=== PATIENT | female | born 1930 | race Caucasian/White ===

== ENCOUNTER 2017-02-22 19:50 | Inpatient (IN) ==
[2017-02-22] MEDS ORDERED: KETOROLAC 30 MG/1 ML VIAL IV STA (21:49)
[2017-02-22] MEDS ORDERED: ONDANSETRON 4 MG/2 ML VIAL IV STA (21:49)
[2017-02-22] MEDS ORDERED: METHOCARBAMOL 500 MG TABLET PO STA (21:49)
[2017-02-22] MEDS ORDERED: ASPIRIN 325 MG TABLET PO STA (21:49)
--- NOTE | 2017-02-22 21:58 | EKG Report ---
Stationary ECG Study [facility] ER Test Date: 02/22/2017 8:04:51 PM Pat Name: GREGORY ROBERTS Department: Room: Gender: F [employer] Operator: Leonard : 1930 Requested by: Fabrizio Camacho Order Number: [id number] Reading MD: ALEXI SAAVEDRA Intervals [place] Rate: 57 P: 65 AR: 163 QRS: 99 QRSD: 98 T: 66 QT: 479 QTc: 473 Interpretive Statements SINUS BRADYCARDIA MODERATE RIGHT AXIS DEVIATION Electronically Signed On 02-23-17 07:34:54 CDT by ALEXI SAAVEDRA [email or web address]
[2017-02-22 22:05] LABS: Basophils # 0.1 10*3/uL (0.0-0.2); Basophils % 0.8 % (0.0-0.8); Eosinophils # 0.4 10*3/uL (0.0-0.87); Eosinophils % 5.2 % (0.00-10.9); Hematocrit 31.3 VOL% (35.7-47.0); Hemoglobin 10.6 GM/DL (12.0-16.0); Immature Granulocytes % 0.5 %; Immature Granulocytes Absolute 0.04 #; Lymphocytes # 2.3 10*3/uL (1.4-4.0); Lymphocytes % 30.1 % (21.3-54.2); Mean Corpuscular HGB Conc 33.9 GM/DL (32-36); Mean Corpuscular Hemoglobin 33 PG (27-34); Mean Corpuscular Volume 97.2 FL (87-102); Mean Platelet Volume 11.8 FL (9.6-12.0); Monocytes # 0.7 10*3/uL (0.11-0.8); Monocytes % 9.2 % (1.7-12.7); Neutrophils # 4.1 10*3/uL (1.4-7.4); Neutrophils % 54.2 % (38.7-73.9); Platelet Count 191 T/CUMM (130-400); Red Blood Count 3.22 MC/CUMM (3.8-5.5); Red Cell Distribution Width 14.5 % (9.3-17.3); White Blood Count 7.6 T/CUMM (4-12)
[2017-02-22 22:09] LABS: PT Patient Result 10.6 SECS
[2017-02-22] MEDS ORDERED: METHOCARBAMOL 500 MG TABLET ONE (22:20)
[2017-02-22] MEDS ORDERED: ONDANSETRON 4 MG/2 ML VIAL ONE (22:20)
[2017-02-22] MEDS ORDERED: KETOROLAC 30 MG/1 ML VIAL ONE (22:20)
[2017-02-22 22:21] LABS: Alanine Aminotransferase 22 U/L (13-56); Albumin 3.5 G/DL (3.4-5.0); Alkaline Phosphatase 74 U/L (45-117); Aspartate Amino Transferase 18 U/L (0-37); Bilirubin,Total < 0.39 MG/DL (0.2-1.0); Blood Urea Nitrogen 21 MG/DL (7-18); Calcium 8.7 MG/DL (8.5-10.1); Glucose 91 MG/DL (74-106); Magnesium 2.2 MG/DL (1.8-2.4); Osmolality,Calculated 281.4 MOS/KG (273-304); Potassium 4.6 MMOL/L (3.5-5.1); Sodium 140 MMOL/L (136-145); Total Protein 6.5 G/DL (6.4-8.3)
[2017-02-22] MEDS ORDERED: ASPIRIN 325 MG TABLET ONE (22:21)
[2017-02-23] MEDS ORDERED: ONDANSETRON 4 MG/2 ML VIAL IV STA (00:12)
[2017-02-23] MEDS ORDERED: MEPERIDINE 25 MG/1 ML VIAL IV STA (00:12)
--- NOTE | 2017-02-23 00:12 | Emergency Department Note ---
Farhat Barr Rolonda, am scribing for, and in the presence of, Fabrizio Blackman MD 22:09. Hiral Barr Charles R, MD, personally performed the services described in this documentation, ascribed by Susanne Dougherty in my presence, and it is both accurate and complete . Arrival - Arrival Chief Complaint: Chest Pain Stated Complaint: CHEST PAIN ED Nursing Triage Note: patient ambulator to triage with c/o left sided cp, denies n/v. sob on exertion Mode of Arrival: Wheelchair Limitations: No Limitations Source: Patient, Old Records Reviewed, RN Notes Reviewed - History of Present Illness HPI Narrative: Pt is an 86 y/o female who ambulated to the ED with c/o chest wall pain with an onset of . Pt has a PMHx of AFib, HTH, and Hypothyroidism. Pt stated that she has been "hurting all day" on the right side of her chest. She stated that as she was walking her normal walk for 25 minutes every morning this morning she felt a dull pain on the right side of her chest which continued even after she had finished the walk. She states that she recently had a stress test performed and passed with no complications; she is f/u by Dr. Guaman. She denies N/V, and sweating but confirms chest wall pain with movement. Pt declines being admitted to ED. No other complaint/pain in ED. Consistency: constant Severity: moderate Severity scale (1-10): 4 Allergies/Adverse Reactions: Allergies Allergy/AdvReac Type Severity Reaction Status Date / Time codeine Allergy Unknown/Unable Verified 10/19/16 16:38 to obtain Home Medications: Home Medications Medication Instructions Recorded Confirmed Type Amiodarone HCl 200 mg PO DAILY 10/17/16 02/22/17 History Calcium Carbonate/Vitamin D3 1 each PO DAILY 10/17/16 02/22/17 History [Caltrate 600 Plus D3 Tablet] Lisinopril 10 mg PO DAILY 10/17/16 02/22/17 History Apixaban [Eliquis] 2.5 mg PO BID 02/22/17 02/22/17 History Cyanocobalamin (Vitamin B-12) 1,000 mcg IJ Q30D 02/22/17 02/22/17 History [Cyanocobalamin Injection] Lactobacillus Combo No.6 1 each PO DAILY 02/22/17 02/22/17 History [Probiotic Complex] Levothyroxine Tab [Synthroid Tab] 112 mcg PO DAILY 02/22/17 02/22/17 History Review of System - Review of System 12 point system: reviewed and no additional remarkable complaints except as stated - Review of System Constitutional: Absent: chills, diaphoresis, fever Respiratory: Absent: cough, respiratory distress Cardiovascular: Present: chest pain (chest wall pain). Absent: dyspnea on exertion Gastrointestinal: Absent: abdominal pain, nausea, vomiting, diarrhea Musculoskeletal: Absent: arm pain, back pain, leg pain, neck pain Skin: Absent: rash Neurological: Absent: headache, weakness Medical,Surgical,& Family Hx - Medical History Cardio: History of: Cardiac Dysrhythmia (afib), Hypertension, Cardiovascular Problems (a-fib) Neurology: No history of: Seizures Endocrine: History of: Thyroid Disorder - Family History Family History: Reports;: Family Hypertension - Social History Smoking Status: Former smoker Frequency of Alcohol Use: None Type of Drug Use: None Exam Vital Signs: Vital Signs Temperature 97.3 F L 02/22/17 19:56 Pulse Rate 51 L 02/22/17 19:56 Respiratory Rate 20 02/22/17 19:56 Blood Pressure 180/63 02/22/17 19:56 O2 Sat by Pulse Oximetry 94 L 02/22/17 19:56 - General General appearance: alert, in no apparent distress - Head Head exam: Present: atraumatic, normocephalic - Eye Eye exam: Present: PERRL, EOMI - ENT ENT exam: Present: mucous membranes moist. Absent: mucous membranes dry - Neck Neck exam: Present: full ROM. Absent: tenderness - Chest Chest inspection: Present: symmetric chest wall rise. Absent: tenderness - Respiratory Respiratory exam: Present: normal lung sounds bilaterally. Absent: wheezes - Cardiovascular Cardiovascular exam: Present: murmur (3/6) - Abdominal Exam Abdominal exam: Present: soft, normal bowel sounds. Absent: tenderness - Extremities Exam Extremities exam: Present: full ROM. Absent: tenderness - Back Exam Back exam: Present: full ROM. Absent: tenderness - Neurological Exam Neurological exam: Present: alert, oriented X3, CN II-XII intact - Psychiatric Psychiatric exam: Present: normal affect, normal mood - Skin Skin exam: Present: warm, dry, intact, normal color. Absent: rash Course - Consultations Consultation #1: Dr. Townsend will admit patient Time: 00:11 Results - Labs CBC & BMP: 02/22/17 20:30 02/22/17 20:30 Lab Results: I have reviewed the patients labs Labs: Laboratory Tests 02/22/17 20:30 WBC 7.6 RBC 3.22 L Hgb 10.6 L Hct 31.3 L Plt Count 191 Laboratory Tests 02/22/17 20:30 INR 1.0 PT Patient/Control Mix 10.6 Laboratory Tests 02/22/17 20:30 Sodium 140 Potassium 4.6 Chloride 107 Carbon Dioxide 24 BUN 21 H GFR Calculation 48 BUN/Creatinine Ratio 21.00 H Laboratory Tests 02/22/17 20:30 B-Natriuretic Peptide 336 H Disposition Clinical Impression: Chest pain, Atrial fibrillation, Hypertension Case discussed with: patient, patient's family Disposition: Still a Patient Condition: Stable Time of Disposition: 00:12
[2017-02-23] MEDS ORDERED: MEPERIDINE 25 MG/1 ML VIAL ONE (00:17)
[2017-02-23] MEDS ORDERED: ONDANSETRON 4 MG/2 ML VIAL ONE (00:17)
[2017-02-23] MEDS ORDERED: HYDROmorphone 2 MG/1 ML VIAL IV PRN (01:05)
[2017-02-23] MEDS ORDERED: POTASSIUM CHLORIDE 20 MEQ TABLET PO PRN (01:05)
[2017-02-23] MEDS ORDERED: SODIUM CHLORIDE 0.9% 1,000 ML IV SCH (01:05)
[2017-02-23] MEDS ORDERED: MAGNESIUM SULF RIDER 4 GM in PREMIX 1 EACH IV PRN (01:05)
[2017-02-23] MEDS ORDERED: MAGNESIUM SULF RIDER 2 GM in PREMIX 1 EACH IV PRN (01:05)
--- NOTE | 2017-02-23 01:54 | EKG Report ---
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
[2017-02-23 05:56] LABS: Basophils # 0.1 10*3/uL (0.0-0.2); Basophils % 0.9 % (0.0-0.8); Eosinophils # 0.4 10*3/uL (0.0-0.87); Eosinophils % 6.3 % (0.00-10.9); Hematocrit 31.2 VOL% (35.7-47.0); Hemoglobin 10.6 GM/DL (12.0-16.0); Immature Granulocytes % 0.3 %; Immature Granulocytes Absolute 0.02 #; Lymphocytes # 2.6 10*3/uL (1.4-4.0); Lymphocytes % 40.1 % (21.3-54.2); Mean Corpuscular Hemoglobin 33 PG (27-34); Mean Corpuscular Volume 97.2 FL (87-102); Mean Platelet Volume 11.5 FL (9.6-12.0); Monocytes # 0.5 10*3/uL (0.11-0.8); Monocytes % 8.2 % (1.7-12.7); Neutrophils # 2.9 10*3/uL (1.4-7.4); Neutrophils % 44.2 % (38.7-73.9); Platelet Count 171 T/CUMM (130-400); Red Blood Count 3.21 MC/CUMM (3.8-5.5); Red Cell Distribution Width 14.4 % (9.3-17.3); White Blood Count 6.5 T/CUMM (4-12)
[2017-02-23 06:29] LABS: Albumin 3.3 G/DL (3.4-5.0); Bilirubin,Total 0.6 MG/DL (0.2-1.0); Calcium 8.3 MG/DL (8.5-10.1); Magnesium 2.2 MG/DL (1.8-2.4); Osmolality,Calculated 284.1 MOS/KG (273-304); Potassium 4.9 MMOL/L (3.5-5.1); Risk Ratio 3.42; Thyroid Stimulating Hormone 4.08 uIU/ml (0.358-3.74); Total Protein 6.1 G/DL (6.4-8.3); VLDL CHOLESTEROL 22.2 MG/DL
[2017-02-23] MEDS ORDERED: LEVOTHYROXINE 112 MCG TABLET PO SCH (07:00)
--- NOTE | 2017-02-23 07:31 | XRay Report ---
2 view chest. Indication: Chest pain. Comparison: July 16, 2016. The heart is upper limits of normal in size. There is a 7.8 cm hiatal hernia. There is calcific plaque present within the aortic knob. There is bilateral apical pleural irregularity which is stable. There is interstitial fibrosis which is stable. There has been a previous right mastectomy and axillary dissection. The osseous structures are severely demineralized. Previous vertebroplasty at the lumbar level. Surgical hardware in the right humerus. Impression: Chronic lung changes. Hiatal hernia. No acute abnormality. PROCEDURE INTERPRETED AT [facility] DEPARTMENT OF RADIOLOGY Final Report Signed by: Dr. Brianne Matos
--- NOTE | 2017-02-23 07:32 | XRay Report ---
Portable chest. Indication: Shortness of breath. Comparison: Yesterday's exam. The heart is normal in size. There is calcific plaque present within the aortic knob. Fibrotic changes are noted within the lung spencer. No consolidation, pneumothorax, or pleural effusion. Apical pleural irregularity, stable. Previous right mastectomy and axillary dissection. Surgical clips in the left neck. Surgical hardware in the right proximal humerus. Moderate hiatal hernia. Impression: Chronic lung changes. Hiatal hernia. No acute abnormality. PROCEDURE INTERPRETED AT [facility] DEPARTMENT OF RADIOLOGY Final Report Signed by: Dr. Brianne Matos
[2017-02-23] MEDS ORDERED: LACTOBACILLUS ACIDOPHILUS/BULGARICUS CAPLET PO SCH (09:00)
[2017-02-23] MEDS ORDERED: CALCIUM (CARBONATE)/VITAMIN D 600 MG-400 UNIT TABLET PO SCH (09:00)
[2017-02-23] MEDS ORDERED: APIXABAN 2.5 MG TABLET PO SCH (09:00)
[2017-02-23] MEDS ORDERED: ASPIRIN EC 81 MG TABLET PO SCH (09:00)
[2017-02-23] MEDS ORDERED: LISINOPRIL 10 MG TABLET PO SCH ×3 (09:00→09:32)
[2017-02-23] MEDS ORDERED: PANTOPRAZOLE 40 MG TABLET PO SCH (09:00)
[2017-02-23] MEDS ORDERED: AMIODARONE 200 MG TABLET PO SCH (09:00)
[2017-02-23] MEDS ORDERED: LEVOTHYROXINE 100 MCG TABLET PO SCH (09:31)
[2017-02-23] MEDS ORDERED: ALUMINUM/MAGNES/SIMETH MAX STR 30 ML UDCUP PO PRN (09:31)
[2017-02-23] MEDS ORDERED: NITROGLYCERIN SL 0.4 MG TABLET SL PRN (09:32)
--- NOTE | 2017-02-23 09:35 | Cardiology History & Physical ---
Assessment and Plan (1) Hiatal hernia Status: Acute Assessment and plan: 86-year-old female, presenting with chest pain, suggestive of GI origin from hiatal hernia. Also, had a marked hypertension. History of hypertension, hypothyroidism, recent stress test negative for ischemia, normal systolic function. Mild anemia, mild CKD, mild hyperthyroidism on current dose of Synthroid. ACS was ruled out. She is able to eat, without difficulties. The pain resolved , the blood pressure is better controlled. Mild, asymptomatic sinus bradycardia and EKG. -Chest pain. She will need GI evaluation. Currently, she is low risk and this may be pursued as an outpatient. -Continue PPI, start Maalox as needed. -Add amlodipine 5 mg daily for hypertension, this may also help with any muscular spastic component, if that contributed to the pain. I would avoid CCB' s with cardiac effects, due to baseline sinus bradycardia. -Hypertension. Continue lisinopril, she will need follow-up on this, pressure was markedly elevated, but she was in severe pain. -Hyperthyroidism. Decrease Synthroid 200 mcg daily. -Atrial fibrillation. Currently, in sinus rhythm. Continue amiodarone, anticoagulation with low-dose Eliquis. -Anemia. Will recommend GI evaluation as first step. Current Visit: Yes (2) Atrial fibrillation Status: Acute Current Visit: Yes (3) Acute urinary retention Status: Acute Current Visit: No (4) Hypertension Status: Chronic Current Visit: Yes (5) Hypothyroidism Status: Chronic Current Visit: No (6) Chest pain Status: Acute Current Visit: Yes History of Present Illness Chief complaint: CP History of present illness: Ms. Kwon is a 86 year old female, followed by Dr. Guaman. She has a history of paroxysmal atrial fibrillation, which is treated with amiodarone, as it was refractory to other measures in the past. Hypothyroidism, controlled with Synthroid. History of urinary retention. Yesterday, while walking, she developed severe retrosternal, sharp burning chest pain, which lasted for more than an hour. She checked her blood pressure was 230 at that time. Otherwise, her blood pressure usually well controlled. She came to the emergency room for evaluation. EKG showed no ischemic changes, blood pressure was mildly elevated and the chest pain resolved with pain medications nitroglycerin. Troponin was normal. Since then, she is feeling some indigestion, but no recurrence of pain and the blood pressure is only mildly elevated at this time. Chest x-ray confirmed hiatal hernia. She had a stress test a month ago, which showed normal systolic function, no evidence of myocardial ischemia. She is compliant with her medications and otherwise denies any black or bloody stools prior indigestion. She did not have GI evaluation before. There is mild sinus bradycardia, with occasional PACs on telemetry. Her prior EKGs from office shows sinus rhythm/sinus bradycardia, sometimes in bigeminy and PACs. No evidence of AV block. She also had documented atrial fibrillation, with controlled ventricular rate before. Mild CKD, GFR 43, both FT4 and TSH is mildly elevated. Home Medications Medication Instructions Recorded Confirmed Type Amiodarone HCl 200 mg PO DAILY 10/17/16 02/22/17 History Calcium Carbonate/Vitamin D3 1 each PO DAILY 10/17/16 02/22/17 History [Caltrate 600 Plus D3 Tablet] Lisinopril 10 mg PO DAILY 10/17/16 02/22/17 History Apixaban [Eliquis] 2.5 mg PO BID 02/22/17 02/22/17 History Cyanocobalamin (Vitamin B-12) 1,000 mcg IJ Q30D 02/22/17 02/22/17 History [Cyanocobalamin Injection] Lactobacillus Combo No.6 1 each PO DAILY 02/22/17 02/22/17 History [Probiotic Complex] Levothyroxine Tab [Synthroid Tab] 112 mcg PO DAILY 02/22/17 02/22/17 History Allergies Allergy/AdvReac Type Severity Reaction Status Date / Time codeine Allergy Unknown/Unable Verified 10/19/16 16:38 to obtain 12 point system: reviewed and no additional remarkable complaints except as stated Medical,Surgical,& Family Hx - Medical History Cardio: History of: Cardiac Dysrhythmia (afib), Hypertension, Cardiovascular Problems (a-fib) Neurology: No history of: Seizures Endocrine: History of: Thyroid Disorder (HYPO) - Family History Family History: Reports;: Family Hypertension - Social History Smoking Status: Former smoker Frequency of Alcohol Use: None Type of Drug Use: None Cardiology Physical Exam - Constitutional Vitals: Vital Signs Temp Pulse Resp BP Pulse Ox 97 F L 50 L 18 178/75 100 02/23/17 08:00 02/23/17 08:00 02/23/17 08:00 02/23/17 08:00 02/23/17 08:00 Intake and Output 02/22/17 02/23/17 02/23/17 23:59 07:59 15:59 Intake Total 50 / 50 Balance 50 / 50 Intake: Oral 50 / 50 Other: Voiding Method Toilet # Voids 1 # Bowel Movements 0 Weight 63.503 kg 63.134 kg Patient Weight 02/23/17 23:59 Weight 63.134 kg General appearance: normal weight, no acute distress - Head Head exam: Present: normal inspection, normocephalic - Eye Eye exam: Absent: conjunctival injection, periorbital swelling Pupils: Absent: dilated - ENT ENT exam: Present: normal external ear exam - Neck Neck exam: Present: normal inspection - Respiratory Respiratory exam: Present: clear to auscultation bilaterally. Absent: decreased breath sounds - Cardiovascular Cardiovascular exam: Present: bradycardia, systolic murmur. Absent: JVD - GI/Abdominal GI/Abdominal exam: Present: normal bowel sounds. Absent: distended, guarding - Extremities Exam Extremities exam: Present: normal inspection, normal capillary refill. Absent: edema - Back Exam Back exam: Present: normal inspection - Neurological Exam Neurological exam: Present: alert, oriented X3 - Psychiatric Psychiatric exam: Present: normal affect, normal mood - Skin Skin exam: Present: normal color, warm. Absent: cyanosis Result/EKG - Labs CBC & BMP: 02/23/17 04:53 02/23/17 04:53 Lab Results: I have reviewed the past 24 hour labs Labs: Laboratory Results - last 24 hr 02/22/17 02/22/17 02/22/17 20:30 20:30 20:30 WBC 7.6 RBC 3.22 L Hgb 10.6 L Hct 31.3 L MCV 97.2 MCH 33 MCHC 33.9 RDW 14.5 Plt Count 191 MPV 11.8 Neut % (Auto) 54.2 Lymph % (Auto) 30.1 [place] % (Auto) 9.2 Eos % (Auto) 5.2 Baso % (Auto) 0.8 Neut # (Auto) 4.1 Lymph # (Auto) 2.3 [place] # (Auto) 0.7 Eos # (Auto) 0.4 Baso # (Auto) 0.1 Immature Gran % 0.5 Nucleated RBC % 0.0 Immature Gran # 0.04 Nucleated RBCs # 0.00 INR 1.0 PT Patient/Control Mix 10.6 Sodium 140 Potassium 4.6 Chloride 107 Carbon Dioxide 24 Anion Gap 13.6 BUN 21 H Creatinine 1.00 GFR Calculation 48 BUN/Creatinine Ratio 21.00 H Glucose 91 Calculated Osmolality 281.4 Calcium 8.7 Magnesium 2.2 Total Bilirubin < 0.39 AST 18 ALT 22 Alkaline Phosphatase 74 Troponin I B-Natriuretic Peptide Total Protein 6.5 Albumin 3.5 Globulin 3.0 Albumin/Globulin Ratio 1.1 Triglycerides Cholesterol LDL Cholesterol VLDL Cholesterol HDL Cholesterol Heart Disease Risk Ratio Lipase 182.0 Free T4 TSH 3rd Generation 02/22/17 02/22/17 02/23/17 20:30 20:30 04:53 WBC RBC Hgb Hct MCV MCH MCHC RDW Plt Count MPV Neut % (Auto) Lymph % (Auto) [place] % (Auto) Eos % (Auto) Baso % (Auto) Neut # (Auto) Lymph # (Auto) [place] # (Auto) Eos # (Auto) Baso # (Auto) Immature Gran % Nucleated RBC % Immature Gran # Nucleated RBCs # INR PT Patient/Control Mix Sodium Potassium Chloride Carbon Dioxide Anion Gap BUN Creatinine GFR Calculation BUN/Creatinine Ratio Glucose Calculated Osmolality Calcium Magnesium Total Bilirubin AST ALT Alkaline Phosphatase Troponin I 0.019 < 0.015 B-Natriuretic Peptide 336 H Total Protein Albumin Globulin Albumin/Globulin Ratio Triglycerides Cholesterol LDL Cholesterol VLDL Cholesterol HDL Cholesterol Heart Disease Risk Ratio Lipase Free T4 TSH 3rd Generation 02/23/17 02/23/17 02/23/17 04:53 04:53 04:53 WBC 6.5 RBC 3.21 L Hgb 10.6 L Hct 31.2 L MCV 97.2 MCH 33 MCHC 34.0 RDW 14.4 Plt Count 171 MPV 11.5 Neut % (Auto) 44.2 Lymph % (Auto) 40.1 [place] % (Auto) 8.2 Eos % (Auto) 6.3 Baso % (Auto) 0.9 H Neut # (Auto) 2.9 Lymph # (Auto) 2.6 [place] # (Auto) 0.5 Eos # (Auto) 0.4 Baso # (Auto) 0.1 Immature Gran % 0.3 Nucleated RBC % 0.0 Immature Gran # 0.02 Nucleated RBCs # 0.00 INR PT Patient/Control Mix Sodium 142 Potassium 4.9 Chloride 108 H Carbon Dioxide 23 Anion Gap 15.9 H BUN 20 H Creatinine 1.10 H GFR Calculation 43 BUN/Creatinine Ratio 18.00 Glucose 81 Calculated Osmolality 284.1 Calcium 8.3 L Magnesium 2.2 Total Bilirubin 0.60 AST 14 ALT 20 Alkaline Phosphatase 69 Troponin I B-Natriuretic Peptide 542 H Total Protein 6.1 L Albumin 3.3 L Globulin 2.8 Albumin/Globulin Ratio 1.1 Triglycerides 111 Cholesterol 205 H LDL Cholesterol 118.0 VLDL Cholesterol 22.2 HDL Cholesterol 60 Heart Disease Risk Ratio 3.42 Lipase Free T4 TSH 3rd Generation 4.080 H 02/23/17 04:53 WBC RBC Hgb Hct MCV MCH MCHC RDW Plt Count MPV Neut % (Auto) Lymph % (Auto) [place] % (Auto) Eos % (Auto) Baso % (Auto) Neut # (Auto) Lymph # (Auto) [place] # (Auto) Eos # (Auto) Baso # (Auto) Immature Gran % Nucleated RBC % Immature Gran # Nucleated RBCs # INR PT Patient/Control Mix Sodium Potassium Chloride Carbon Dioxide Anion Gap BUN Creatinine GFR Calculation BUN/Creatinine Ratio Glucose Calculated Osmolality Calcium Magnesium Total Bilirubin AST ALT Alkaline Phosphatase Troponin I B-Natriuretic Peptide Total Protein Albumin Globulin Albumin/Globulin Ratio Triglycerides Cholesterol LDL Cholesterol VLDL Cholesterol HDL Cholesterol Heart Disease Risk Ratio Lipase Free T4 1.49 H TSH 3rd Generation - EKG EKG results: interpreted by me
--- NOTE | 2017-02-23 09:43 | Discharge Summary ---
Hospital Course - Hospital Course Hospital Course: 86-year-old female, followed by dr. Guaman. Presenting with chest pain, suggestive of GI origin from hiatal hernia. Also, had a marked hypertension. History of hypertension, hypothyroidism, recent stress test negative for ischemia, normal systolic function. Mild anemia, mild CKD, mild hyperthyroidism on current dose of Synthroid. ACS was ruled out. She is able to eat, without difficulties. The pain resolved , the blood pressure is now better controlled. Mild, asymptomatic sinus bradycardia and EKG. -Chest pain, HH. She will need GI evaluation. Currently, she is low risk and this may be pursued as an outpatient. -Continue PPI, started Maalox prn. -Added amlodipine 5 mg daily for hypertension, this may also help with any muscular spastic component, if that contributed to the pain. I would avoid CCB' s with cardiac effects, due to baseline sinus bradycardia. NTG prn. -Hypertension. Continue lisinopril, she will need follow-up on this, pressure was markedly elevated, when she was in severe pain. -Hyperthyroidism. Decreased Synthroid to 100 mcg daily. -Atrial fibrillation. Currently, in sinus bradycardia. Continue amiodarone, anticoagulation with low-dose Eliquis. -Cont ASA for CV risk factors. -Anemia. Will recommend GI evaluation as first step. -Elevated BNP, without signs of heart failure or volume overload. Prior echo showed grade 3 diastolic dysfunction, severe mitral regurgitation. I am going to add HTCZ 12.5 mg daily to her regimen. Continue rate and BP control. -FU with dr. Guaman in 1 week. Check BMP/Mg with added diuretic Diagnosis - Discharge Diagnosis (1) Hiatal hernia Status: Acute (2) Atrial fibrillation Status: Acute (3) Acute urinary retention Status: Acute (4) Hypertension Status: Chronic (5) Hypothyroidism Status: Chronic (6) Chest pain Status: Acute Discharge Plan - Discharge Data Disposition: Disch To Home/Self Care Condition at Discharge: Stable Discharge Diet: advance to your usual diet Activity: resume usual activities as tolerated Hygiene: no restrictions Weight Bearing at Discharge: full weight bearing Driving: no restrictions Contact your physician if you experience:: fever over 101, Difficulty voiding, Redness or swelling, Nausea/Vomiting, Shortness of breath, Bleeding, pain uncontrolled by pain medications - Discharge Medications New Aspirin EC Tab 81 mg PO DAILY #30 tablet hydroCHLOROthiazide [Hydrochlorothiazide] 12.5 mg PO DAILY #30 capsule Levothyroxine Tab [Synthroid Tab] 100 mcg PO 0700 #30 tablet Alum/Mag/Simeth Max Str Liquid [Mylanta Max Strength Liquid] 30 ml PO Q4H PRN #30 PRN Reason: Dyspepsia amLODIPine [Norvasc] 5 mg PO DAILY #30 tablet Continue Calcium Carbonate/Vitamin D3 [Caltrate 600 Plus D3 Tablet] 1 each PO DAILY Amiodarone HCl 200 mg PO DAILY Apixaban [Eliquis] 2.5 mg PO BID Lactobacillus Combo No.6 [Probiotic Complex] 1 each PO DAILY Lisinopril 10 mg PO DAILY Cyanocobalamin (Vitamin B-12) [Cyanocobalamin Injection] 1,000 mcg IJ Q30D Discontinued Levothyroxine Tab [Synthroid Tab] 112 mcg PO DAILY - Follow Up or Referral Follow Up: Zhang Guaman MD [Physician] - - Forms/Instructions Exam - Constitutional Vitals: Period Temp Pulse Resp BP Sys/Goff Pulse Ox Last 24 Hr 97 F-97.8 F 46-52 16-20 144-180/54-75 94-100 General appearance: normal weight, no acute distress - Head Head exam: Present: normal inspection, normocephalic - Eye Eye exam: Absent: conjunctival injection, scleral icterus Pupils: Absent: dilated - ENT ENT exam: Present: normal external ear exam - Neck Neck exam: Present: normal inspection - Respiratory Respiratory exam: Present: clear to auscultation bilaterally. Absent: accessory muscle use, chest wall tenderness - Cardiovascular Cardiovascular exam: Present: bradycardia, systolic murmur - GI/Abdominal GI/Abdominal exam: Present: normal bowel sounds. Absent: distended, guarding - Extremities Exam Extremities exam: Present: normal inspection, normal capillary refill. Absent: edema - Back Exam Back exam: Present: normal inspection - Neurological Exam Neurological exam: Present: alert, oriented X3 - Psychiatric Psychiatric exam: Present: normal affect, normal mood - Skin Skin exam: Present: normal color, warm. Absent: cyanosis Discharge Results Labs on day of discharge: Labs from last 24 hours 02/23/17 02/23/17 02/23/17 04:53 04:53 04:53 WBC RBC Hgb Hct MCV MCH MCHC RDW Plt Count MPV Neut % (Auto) Lymph % (Auto) [place] % (Auto) Eos % (Auto) Baso % (Auto) Neut # (Auto) Lymph # (Auto) [place] # (Auto) Eos # (Auto) Baso # (Auto) Immature Gran % Nucleated RBC % Immature Gran # Nucleated RBCs # INR PT Patient/Control Mix Sodium 142 Potassium 4.9 Chloride 108 H Carbon Dioxide 23 Anion Gap 15.9 H BUN 20 H Creatinine 1.10 H GFR Calculation 43 BUN/Creatinine Ratio 18.00 Glucose 81 Calculated Osmolality 284.1 Calcium 8.3 L Magnesium 2.2 Total Bilirubin 0.60 AST 14 ALT 20 Alkaline Phosphatase 69 Troponin I B-Natriuretic Peptide 542 H Total Protein 6.1 L Albumin 3.3 L Globulin 2.8 Albumin/Globulin Ratio 1.1 Triglycerides 111 Cholesterol 205 H LDL Cholesterol 118.0 VLDL Cholesterol 22.2 HDL Cholesterol 60 Heart Disease Risk Ratio 3.42 Lipase Free T4 1.49 H TSH 3rd Generation 4.080 H 02/23/17 02/23/17 02/22/17 04:53 04:53 20:30 WBC 6.5 RBC 3.21 L Hgb 10.6 L Hct 31.2 L MCV 97.2 MCH 33 MCHC 34.0 RDW 14.4 Plt Count 171 MPV 11.5 Neut % (Auto) 44.2 Lymph % (Auto) 40.1 Tillman % (Auto) 8.2 Eos % (Auto) 6.3 Baso % (Auto) 0.9 H Neut # (Auto) 2.9 Lymph # (Auto) 2.6 Tillman # (Auto) 0.5 Eos # (Auto) 0.4 Baso # (Auto) 0.1 Immature Gran % 0.3 Nucleated RBC % 0.0 Immature Gran # 0.02 Nucleated RBCs # 0.00 INR PT Patient/Control Mix Sodium Potassium Chloride Carbon Dioxide Anion Gap BUN Creatinine GFR Calculation BUN/Creatinine Ratio Glucose Calculated Osmolality Calcium Magnesium Total Bilirubin AST ALT Alkaline Phosphatase Troponin I < 0.015 B-Natriuretic Peptide 336 H Total Protein Albumin Globulin Albumin/Globulin Ratio Triglycerides Cholesterol LDL Cholesterol VLDL Cholesterol HDL Cholesterol Heart Disease Risk Ratio Lipase Free T4 TSH 3rd Generation 02/22/17 02/22/17 02/22/17 20:30 20:30 20:30 WBC 7.6 RBC 3.22 L Hgb 10.6 L Hct 31.3 L MCV 97.2 MCH 33 MCHC 33.9 RDW 14.5 Plt Count 191 MPV 11.8 Neut % (Auto) 54.2 Lymph % (Auto) 30.1 Tillman % (Auto) 9.2 Eos % (Auto) 5.2 Baso % (Auto) 0.8 Neut # (Auto) 4.1 Lymph # (Auto) 2.3 Tillman # (Auto) 0.7 Eos # (Auto) 0.4 Baso # (Auto) 0.1 Immature Gran % 0.5 Nucleated RBC % 0.0 Immature Gran # 0.04 Nucleated RBCs # 0.00 INR PT Patient/Control Mix Sodium 140 Potassium 4.6 Chloride 107 Carbon Dioxide 24 Anion Gap 13.6 BUN 21 H Creatinine 1.00 GFR Calculation 48 BUN/Creatinine Ratio 21.00 H Glucose 91 Calculated Osmolality 281.4 Calcium 8.7 Magnesium 2.2 Total Bilirubin < 0.39 AST 18 ALT 22 Alkaline Phosphatase 74 Troponin I 0.019 B-Natriuretic Peptide Total Protein 6.5 Albumin 3.5 Globulin 3.0 Albumin/Globulin Ratio 1.1 Triglycerides Cholesterol LDL Cholesterol VLDL Cholesterol HDL Cholesterol Heart Disease Risk Ratio Lipase 182.0 Free T4 TSH 3rd Generation 02/22/17 20:30 WBC RBC Hgb Hct MCV MCH MCHC RDW Plt Count MPV Neut % (Auto) Lymph % (Auto) [place] % (Auto) Eos % (Auto) Baso % (Auto) Neut # (Auto) Lymph # (Auto) [place] # (Auto) Eos # (Auto) Baso # (Auto) Immature Gran % Nucleated RBC % Immature Gran # Nucleated RBCs # INR 1.0 PT Patient/Control Mix 10.6 Sodium Potassium Chloride Carbon Dioxide Anion Gap BUN Creatinine GFR Calculation BUN/Creatinine Ratio Glucose Calculated Osmolality Calcium Magnesium Total Bilirubin AST ALT Alkaline Phosphatase Troponin I B-Natriuretic Peptide Total Protein Albumin Globulin Albumin/Globulin Ratio Triglycerides Cholesterol LDL Cholesterol VLDL Cholesterol HDL Cholesterol Heart Disease Risk Ratio Lipase Free T4 TSH 3rd Generation - Imaging and Cardiology Cardiology Procedure: image reviewed by me, report reviewed by me DS: Provider Date of admission: 02/23/17 00:12 Primary care physician: Linda Caal Attending physician on admission: Vlad Townsend MD Discharging clinician: Vlad Townsend MD Expected date of discharge: 02/23/17
[2017-02-23] MEDS ORDERED: hydroCHLOROthiazide 12.5 MG CAPSULE PO SCH (10:00)
[2017-02-23] MEDS ORDERED: amLODIPine 5 MG TABLET PO SCH (10:00)
--- NOTE | 2017-02-23 10:43 | EKG Report ---
Stationary ECG Study [facility] Test Date: 02/23/2017 10:16:06 AM Pat Name: GREGORY ROBERTS Department: Room: 287 Gender: F Palliative Medicine Physician: FLOYD : [id number] Requested by: Fabrizio Camacho Order Number: [id number] Reading MD: ALEXI SAAVEDRA Intervals [place] Rate: 48 P: 83 ID: [id number] QRS: 95 QRSD: 98 T: 87 QT: 504 QTc: 470 Interpretive Statements SINUS BRADYCARDIA BORDERLINE RIGHT AXIS DEVIATION Electronically Signed On 02-23-17 13:46:49 CDT by ALEXI SAAVEDRA [email or web address]
[2017-02-23 11:32] VITALS: BP 190/81
== END 2017-02-23 13:41 | disposition home or self-care (01) | DRG 392 ==
LOC: N.ED 19:50 → N.EDINP 02-23 00:12 → N.TELEN 02-23 01:10
PROVIDERS: ADMIT Internal Medicine Clinical Cardiac Electrophysiology; ATTEND Internal Medicine Clinical Cardiac Electrophysiology

== ENCOUNTER 2017-03-12 17:03 | Inpatient (IN) ==
[2017-03-12] MEDS ORDERED: ONDANSETRON 4 MG/2 ML VIAL IV STA (17:27)
[2017-03-12] MEDS ORDERED: SODIUM CHLORIDE 0.9% 1,000 ML IV STA (17:27)
[2017-03-12 17:48] LABS: Basophils % 0.1 % (0.0-0.8); Eosinophils % 0.1 % (0.00-10.9); Hematocrit 28.3 VOL% (35.7-47.0); Hemoglobin 10.4 GM/DL (12.0-16.0); Immature Granulocytes % 2.4 %; Immature Granulocytes Absolute 0.34 #; Lymphocytes # 1.4 10*3/uL (1.4-4.0); Lymphocytes % 9.7 % (21.3-54.2); Mean Corpuscular HGB Conc 36.7 GM/DL (32-36); Mean Corpuscular Hemoglobin 33 PG (27-34); Mean Corpuscular Volume 90.1 FL (87-102); Mean Platelet Volume 10.3 FL (9.6-12.0); Monocytes % 7.2 % (1.7-12.7); Neutrophils # 11.6 10*3/uL (1.4-7.4); Neutrophils % 80.5 % (38.7-73.9); Platelet Count 244 T/CUMM (130-400); Red Blood Count 3.14 MC/CUMM (3.8-5.5); Red Cell Distribution Width 13.2 % (9.3-17.3); White Blood Count 14.4 T/CUMM (4-12)
[2017-03-12] MEDS ORDERED: ONDANSETRON 4 MG/2 ML VIAL ONE (17:48)
--- NOTE | 2017-03-12 17:55 | XRay Report ---
Portable chest Date: 03/12/2017 Clinical history: Tachycardia Comparison: 03/05/2017 Technique: Portable AP sitting chest Findings: The heart is enlarged with calcification in the aortic knob. Density posterior to the heart consistent with probable hiatal hernia. Chronic scarring in the lungs with minimal atelectasis. Post operative findings in the proximal right humerus with old healed fracture, osteopenia, and degenerative changes. Postoperative findings in the right axilla. Impression: Stable cardiomegaly with hiatal hernia. Chronic scarring with minimal atelectasis. Osteopenia with old healed proximal right humeral fracture. PROCEDURE INTERPRETED AT [facility] DEPARTMENT OF RADIOLOGY Final Report Signed by: Dr. Dianne Pascual
--- NOTE | 2017-03-12 17:57 | XRay Report ---
Exam: XR abdomen 1V Date: 03/12/2017 5:39 PM Comparison: 09/28/2010 Indication: Nausea and vomiting Technique:[Supine abdomen] Findings: Mild gaseous distention of the right colon with increased fecal material. Minimal dextroscoliosis of the lumbar spine with interval L1 and L2 kyphoplasty. Osteopenia with degenerative changes. Impression: Mild gaseous distention of the right colon which is probably related to the increased fecal material consistent with constipation. It would be difficult to exclude ileus, etc. Minimal dextroscoliosis with osteopenia and prior L1 and L2 kyphoplasty. PROCEDURE INTERPRETED AT [facility] DEPARTMENT OF RADIOLOGY Final Report Signed by: Dr. Dianne Pascual
[2017-03-12 18:20] LABS: Alanine Aminotransferase 53 U/L (13-56); Albumin 3.1 G/DL (3.4-5.0); Alkaline Phosphatase 92 U/L (45-117); Aspartate Amino Transferase 42 U/L (0-37); Bilirubin,Total < 0.39 MG/DL (0.2-1.0); Blood Urea Nitrogen 26 MG/DL (7-18); Calcium 8.1 MG/DL (8.5-10.1); Glucose 164 MG/DL (74-106); Osmolality,Calculated 237.2 MOS/KG (273-304); Potassium 5.6 MMOL/L (3.5-5.1); Troponin I Only 0.018 NG/ML (0.00-0.045)
[2017-03-12 18:26] LABS: Sodium 113 MMOL/L (136-145)
--- NOTE | 2017-03-12 18:46 | Emergency Department Note ---
Petar Barr Brittany, am scribing for, and in the presence of, Jc Beard MD 17 :32. Kisha Barr Hans, MD, personally performed the services described in this documentation, ascribed by Sera Davey in my presence, and it is both accurate and complete [id number] . Arrival - Arrival Chief Complaint: Nausea/Vomiting/Diarrhea Stated Complaint: C/O ABDOMINAL PAIN WITH NAUSEA. PT STATES SHE ED Nursing Triage Note: C/O NAUSEA/ABD PAIN WITH ONSET TWO DAYS AGO, PT STATES SHE HAS NOT EATEN IN TWO DAYS. PT IS CURRENTLY BEING TREATED FOR UTI. EMS STATES HER HEART RATE WAS 32 UPON EMS ARRIVAL. CAME UP TO 65 WITH 0.5 ATROPINE PER EMS. Mode of Arrival: Stretcher Limitations: No Limitations Source: Patient, RN Notes Reviewed Time Seen by Provider: 03/12/17 17:18 - History of Present Illness HPI Narrative: Patient is a 86 y/o white female presenting to the ED by EMS with c/o severe nausea which onset 2 days ago, worsening today. Patient denies any abdominal pain or vomiting. Patient reports that she currently is being treated for a UTI. Patient states that she currently takes a Thyroid medication before meals and states that this may have made her sick. From triage note patient was found to be bradycardic with a rate of 32 bpm per EMS and was given 0.5 mg of Atropine per EMS, bringing rate up to 65 bpm. In room patient is bradycardic with a rate of 45 bpm on the monitor. Patient has no other complaints/pain. Date of Last Menstrual Period: ST Allergies/Adverse Reactions: Allergies Allergy/AdvReac Type Severity Reaction Status Date / Time codeine Allergy Unknown/Unable Verified 03/04/17 23:59 to obtain Home Medications: Home Medications Medication Instructions Recorded Confirmed Type Amiodarone HCl 200 mg PO DAILY 10/17/16 03/11/17 History Calcium Carbonate/Vitamin D3 1 each PO DAILY 10/17/16 03/11/17 History [Caltrate 600 Plus D3 Tablet] Lisinopril 10 mg PO DAILY 10/17/16 03/11/17 History Apixaban [Eliquis] 2.5 mg PO BID 02/22/17 03/11/17 History Cyanocobalamin (Vitamin B-12) 1,000 mcg IJ Q30D 02/22/17 03/11/17 History [Cyanocobalamin Injection] Lactobacillus Combo No.6 1 each PO DAILY 02/22/17 03/11/17 History [Probiotic Complex] Alum/Mag/Simeth Max Str Liquid 30 ml PO Q4H PRN #30 02/23/17 03/11/17 Rx [Mylanta Max Strength Liquid] Aspirin EC Tab 81 mg PO DAILY #30 tablet 02/23/17 03/11/17 Rx Levothyroxine Tab [Synthroid Tab] 100 mcg PO 0700 #30 tablet 02/23/17 03/11/17 Rx amLODIPine [Norvasc] 5 mg PO DAILY #30 tablet 02/23/17 03/11/17 Rx hydroCHLOROthiazide 12.5 mg PO DAILY #30 capsule 02/23/17 03/11/17 Rx [Hydrochlorothiazide] Ketorolac Tab [Toradol Tab] 10 mg PO Q6H PRN #14 tablet 03/05/17 03/11/17 Rx Ciprofloxacin Tab [Cipro Tab] 500 mg PO BID #14 tablet 03/11/17 Rx Phenazopyridine HCl [Pyridium] 200 mg PO TID #9 tablet 03/11/17 Rx Review of System - Review of System 12 point system: reviewed and no additional remarkable complaints except as stated - Review of System Constitutional: Absent: chills, fever Eyes: Absent: vision change Head/Ears/Nose/Throat: Absent: nasal drainage, sore throat Respiratory: Absent: respiratory distress Cardiovascular: Absent: chest pain Gastrointestinal: Present: nausea. Absent: abdominal pain, vomiting, diarrhea, constipation Genitourinary female: Absent: dysuria, frequency, urgency Musculoskeletal: Absent: arm pain, back pain, leg pain, neck pain Skin: Absent: rash Neurological: Absent: headache Psychiatric: Absent: anxiety, depression Medical,Surgical,& Family Hx - Medical History Cardio: History of: Cardiac Dysrhythmia (afib), Hypertension, Cardiovascular Problems (a-fib) Neurology: No history of: Seizures HEENT: History of: Eye Problem (Macular Degeneration) Endocrine: History of: Thyroid Disorder (HYPO) - Family History Family History: Reports;: Family Hypertension - Social History Smoking Status: Former smoker Frequency of Alcohol Use: None Type of Drug Use: None Exam Vital Signs: Vital Signs Temperature 97.2 F L 03/12/17 17:07 Pulse Rate 47 L 03/12/17 17:07 Respiratory Rate 17 03/12/17 17:07 Blood Pressure 127/33 03/12/17 17:07 O2 Sat by Pulse Oximetry 100 03/12/17 17:07 - General General appearance: alert, in no apparent distress - Head Head exam: Present: atraumatic, normocephalic, normal inspection - Eye Eye exam: Present: normal appearance, PERRL, EOMI - ENT ENT exam: Present: normal exam, normal oropharynx - Neck Neck exam: Present: normal inspection, full ROM, trachea midline - Chest Chest inspection: Present: normal inspection, symmetric chest wall rise - Respiratory Respiratory exam: Present: normal lung sounds bilaterally - Cardiovascular Cardiovascular exam: Present: normal rhythm, bradycardia, normal heart sounds. Absent: regular rate, murmur, rubs, gallop - Abdominal Exam Abdominal exam: Present: soft, hypoactive bowel sounds. Absent: tenderness, normal bowel sounds - Extremities Exam Extremities exam: Present: normal inspection. Absent: pedal edema - Back Exam Back exam: Present: normal inspection - Neurological Exam Neurological exam: Present: alert, oriented X3, CN II-XII intact. Absent: motor sensory deficit - Psychiatric Psychiatric exam: Present: normal affect, normal mood - Skin Skin exam: Present: warm, dry, intact, normal color. Absent: diaphoresis Course Course Narrative: This patient was evaluated in the ER with lab work as well as head CT and urinalysis. Her head CT was negative for acute bleed. She appeared to have symptomatic hyponatremia with volume depletion and dehydration consistent with her presentation of nausea for the past for 5 days. I discussed her care with hospitalist on-call who agreed to come and see her for admission and correction of her hyponatremia. She was given a liter of saline in the ER and a [place] catheter was placed. Results - Labs CBC & BMP: 03/12/17 17:28 03/12/17 17:28 Lab Results: I have reviewed the patients labs Labs: Laboratory Tests 03/12/17 17:28 WBC 14.4 H RBC 3.14 L Hgb 10.4 L Hct 28.3 L MCHC 36.7 H Plt Count 244 Neut % (Auto) 80.5 H Lymph % (Auto) 9.7 L Neut # (Auto) 11.6 H [place] # (Auto) 1.0 H Laboratory Tests 03/12/17 17:28 Sodium 113 L* Potassium 5.6 H Chloride 81 L Anion Gap 16.6 H BUN 26 H Creatinine 2.20 H Glucose 164 H Calculated Osmolality 237.2 L Calcium 8.1 L AST 42 H Total Creatine Kinase 88 CK-MB (CK-2) 1.7 Troponin I 0.018 Total Protein 6.0 L Albumin 3.1 L Albumin/Globulin Ratio 1.0 L - Diagnostic Findings Procedure: Abdominal x-ray: report reviewed by me (Mild gaseous distention of the right colon which is probably related to the increased fecal material consistent with constipation. It would be difficult to exclude ileus, etc. Minimal dextroscoliosis with osteopenia and prior L1 and L2 kyphoplasty.), Chest x-ray: report reviewed by me ( Stable cardiomegaly with hiatal hernia. Chronic scarring with minimal atelectasis. Osteopenia with old healed proximal right humeral fracture.) Disposition Clinical Impression: Hyponatremia Case discussed with: patient Disposition: Still a Patient Condition: Guarded Time of Disposition: 18:46
--- NOTE | 2017-03-12 18:54 | CT Report ---
Referring physician: Jc Beard Exam: CT brain without contrast Date: 03/12/2017 Comparison: None Reason: Alteration of consciousness Technique: Axial images of the head were obtained without the use of contrast. Total DLP was 1081.80 mGy*cm. Findings: Motion artifact. The ventricles are minimally dilated with no midline displacement. Diffuse atrophy and cerebral hypodensities. There is no evidence of an acute infarction, recent intracranial hemorrhage or abnormal mass effect. The osseous structures appear intact. Postoperative findings in the globes. The mastoid air cells and visualized paranasal sinuses are clear. Impression: No acute intracranial abnormality is identified. Cerebral atrophy and microvascular disease with probable minimal compensatory dilatation of the ventricles. The CT exam was performed using one or more of the following dose reduction techniques: Automated exposure control and adjustment of the mA and/or kV according to patient size. PROCEDURE INTERPRETED AT [facility] DEPARTMENT OF RADIOLOGY Final Report Signed by: Dr. Dianne Pascual
[2017-03-12 19:19] LABS: Apearance,Urine CLEAR (Clear); Bacteria,Urine Occasional /HPF (Few); Bilirubin,Urine Negative (Negative); Blood, Urine Negative (Negative); Glucose,Urine (UA) Negative (Negative); Ketones,Urine Negative (Negative); Mucus,Urine Occasional /LPF (Occasional); Nitrite,Urine Positive (Negative); Protein,Urine Negative; RBC,Urine <1 /HPF (0-4); Urine Specific Gravity 1.008 (1.001-1.035); WBC,Urine 7 /HPF (0-6)
[2017-03-12 19:20] LABS: Urine Color ORANGE (Yellow)
--- NOTE | 2017-03-12 20:18 | Hospitalist History & Physical ---
Assessment and Plan (1) Bradycardia by electrocardiogram Status: Acute Assessment and plan: The patient has weakness and nausea likely due to bradycardia. The patient will be hydrated and observed on telemetry and we will hold the amiodarone. We will continue Eliquis. We will recheck sodium in the morning. I am going to give some beta agonist nebulizer to increase the heart rate which will in turn increase cardiac output and help her feel better in the meantime. Current Visit: Yes (2) Hyponatremia Status: Acute Current Visit: Yes (3) Atrial fibrillation Status: Acute Current Visit: No (4) Hyponatremia Status: Acute Current Visit: Yes History of Present Illness Chief complaint: Nausea and bradycardia History of present illness: Ms. Kwon is a 86 year old female with history of chronic atrial fibrillation with controlled rate on amiodarone and anticoagulated with Eliquis. The patient has had dysuria in the last 3 weeks. She has received a couple of oral antibiotic treatments and her dysuria has been improving. For the last 4 days the patient has had increasing nausea and vomiting. She has had reduced oral intake and reduced urine output. The patient had progressive weakness on the date of admission to the hospital and was brought to the emergency room. Cardiac monitoring reveals atrial fibrillation with bradycardia and hypotension. The patient is now admitted to telemetry monitoring for further evaluation of bradycardia and nausea. The patient does not describe angina or shortness of breath. The patient denies any bleeding. The patient's weakness is moderate, continuous, and worsening. Home Medications Medication Instructions Recorded Confirmed Type Amiodarone HCl 200 mg PO DAILY 10/17/16 03/12/17 History Calcium Carbonate/Vitamin D3 1 each PO DAILY 10/17/16 03/12/17 History [Caltrate 600 Plus D3 Tablet] Lisinopril 10 mg PO DAILY 10/17/16 03/12/17 History Apixaban [Eliquis] 2.5 mg PO BID 02/22/17 03/12/17 History Cyanocobalamin (Vitamin B-12) 1,000 mcg IJ Q30D 02/22/17 03/12/17 History [Cyanocobalamin Injection] Lactobacillus Combo No.6 1 each PO DAILY 02/22/17 03/12/17 History [Probiotic Complex] Aspirin EC Tab 81 mg PO DAILY #30 tablet 02/23/17 03/12/17 Rx amLODIPine [Norvasc] 5 mg PO DAILY #30 tablet 02/23/17 03/12/17 Rx hydroCHLOROthiazide 12.5 mg PO DAILY #30 capsule 02/23/17 03/12/17 Rx [Hydrochlorothiazide] Phenazopyridine HCl [Pyridium] 200 mg PO TID #9 tablet 03/11/17 03/12/17 Rx Ketorolac Tab [Toradol Tab] 10 mg PO Q6H PRN 03/12/17 03/12/17 History Levothyroxine Tab [Synthroid Tab] 100 mcg PO DAILY 03/12/17 03/12/17 History Sulfameth/Trimeth 800-160 Tab 1 tablet PO BID 03/12/17 03/12/17 History [Bactrim DS Tab] Allergies Allergy/AdvReac Type Severity Reaction Status Date / Time codeine Allergy Unknown/Unable Verified 03/04/17 23:59 to obtain Medical,Surgical,& Family Hx - Medical History Cardio: History of: Cardiac Dysrhythmia (afib), Hypertension, Cardiovascular Problems (a-fib) Neurology: No history of: Seizures HEENT: History of: Eye Problem (Macular Degeneration) Endocrine: History of: Thyroid Disorder (HYPO) - Family History Family History: Reports;: Family Hypertension - Social History Smoking Status: Former smoker Frequency of Alcohol Use: None Type of Drug Use: None Marital Status: Single Lives With:: Lives with assisted living at [facility] Functional capacity: uses cane/walker 12 point system: reviewed and no additional remarkable complaints except as stated Exam - Constitutional Vitals: Period Temp Pulse Resp BP Sys/Goff Pulse Ox Last 24 Hr 97.2 F-97.2 F 42-51 16-17 127-147/33-44 100-100 Exam: Constitutional System: Mild distress. Mild tremulousness. Head: Normocephalic, atraumatic. Ears, Nose and Throat System: No evidence of Otitis or Mastoiditis. No epistaxis or discharge Eyes System: Pupils equal, round, and reactive. Extraocular muscles intact. Neck: Supple, without adenopathy, No jugular venous distention. No thyromegaly , neck mass, or prior surgery apparent. Respiratory System: Chest clear to auscultation. Cardiovascular System: Heart with irregular slow rate and rhythm. No murmur. GI System: Abdomen soft, nontender. Normo active bowel sounds present. Musculoskeletal System: limbs with no pedal edema. Full distal pulses. Neurological System: No discernable sensory deficit. No aphasia Psychiatric System: Conversation is slower than usual due to weakness Results - Labs CBC & BMP: 03/12/17 17:28 03/12/17 17:28 Lab Results: I have reviewed the past 24 hour labs - EKG EKG shows: bradycardia, atrial fibrillation
[2017-03-12] MEDS ORDERED: ACETAMINOPHEN 325 MG TABLET PO PRN (20:58)
[2017-03-12] MEDS ORDERED: ONDANSETRON 4 MG/2 ML VIAL IV PRN (20:58)
[2017-03-12] MEDS: APIXABAN 2.5 MG TABLET PO SCH (21:26)
[2017-03-12] MEDS: SODIUM CHLORIDE 0.9% 1,000 ML IV SCH (21:28)
[2017-03-12] MEDS: ALBUTEROL 1.25 MG/3 ML NEB RESP TX SCH (23:54)
[2017-03-13] MEDS: SODIUM CHLORIDE 0.9% 1,000 ML IV SCH ×2 (01:22→11:53)
[2017-03-13 01:56] LABS: Free T4 (Free Thyroxine) 1.63 NG/DL (0.76-1.46); Thyroid Stimulating Hormone 3.74 uIU/ml (0.358-3.74)
[2017-03-13] MEDS: ALBUTEROL 1.25 MG/3 ML NEB RESP TX SCH ×5 (03:05→20:34)
[2017-03-13 05:24] LABS: Basophils % 0.1 % (0.0-0.8); Eosinophils % 0.2 % (0.00-10.9); Hematocrit 26.7 VOL% (35.7-47.0); Hemoglobin 9.6 GM/DL (12.0-16.0); Immature Granulocytes % 1.6 %; Immature Granulocytes Absolute 0.17 #; Lymphocytes # 1.7 10*3/uL (1.4-4.0); Lymphocytes % 16.1 % (21.3-54.2); Mean Corpuscular Hemoglobin 32 PG (27-34); Mean Corpuscular Volume 90.2 FL (87-102); Mean Platelet Volume 10.9 FL (9.6-12.0); Monocytes # 1.1 10*3/uL (0.11-0.8); Monocytes % 10.7 % (1.7-12.7); Neutrophils # 7.5 10*3/uL (1.4-7.4); Neutrophils % 71.3 % (38.7-73.9); Platelet Count 226 T/CUMM (130-400); Red Blood Count 2.96 MC/CUMM (3.8-5.5); Red Cell Distribution Width 13.4 % (9.3-17.3); White Blood Count 10.5 T/CUMM (4-12)
[2017-03-13 06:11] LABS: Calcium 7.8 MG/DL (8.5-10.1); Magnesium 2.5 MG/DL (1.8-2.4); Osmolality,Calculated 240.6 MOS/KG (273-304); Potassium 5.8 MMOL/L (3.5-5.1); Troponin I Only 0.03 NG/ML (0.00-0.045)
--- NOTE | 2017-03-13 07:10 | EKG Report ---
Stationary ECG Study [facility] Test Date: 03/13/2017 7:10:26 AM Pat Name: GREGORY ROBERTS Department: Room: 276 Gender: F [employer]ilities Rental Manager: FLOYD : 1930 Requested by: Nolan García Order Number: [id number] Reading MD: SRINIVASA EDWARDS Intervals [place] Rate: 37 P: 240 AL: 142 QRS: 102 QRSD: 105 T: 92 QT: 523 QTc: 436 Interpretive Statements SINUS BRADYCARDIA WITH OCCASIONAL SUPRAVENTRICULAR PREMATURE COMPLEXES IN A BIGEMINAL PATTERN INCOMPLETE RIGHT BUNDLE BRANCH BLOCK POSSIBLE RIGHT VENTRICULAR HYPERTROPHY PROLONGED QT INTERVAL Electronically Signed On 03-13-17 13:00:19 CDT by SRINIVASA EDWARDS [email or web address]
--- NOTE | 2017-03-13 07:47 | EKG Report ---
Stationary ECG Study [facility] ER Test Date: 03/12/2017 5:12:51 PM Pat Name: GREGOYR ROBERTS Department: Room: 276 Gender: F High Man: : 1930 Requested by: Jc Beard Order Number: [id number] Reading MD: SRINIVASA EDAWRDS Intervals Lane Rate: 49 P: 999 GA: 0 QRS: 111 QRSD: 111 T: 64 QT: 533 QTc: 503 Interpretive Statements ATRIAL FIBRILLATION WITH SLOW VENTRICULAR RESPONSE RIGHT AXIS DEVIATION MODERATE ST DEPRESSION PROLONGED QT INTERVAL Electronically Signed On 03-13-17 12:47:34 CDT by SRINIVASA EDWARDS [email or web address]
[2017-03-13] MEDS: LEVOTHYROXINE 100 MCG TABLET PO SCH (08:56)
[2017-03-13] MEDS: APIXABAN 2.5 MG TABLET PO SCH ×2 (08:56→20:56)
[2017-03-13] MEDS: ASPIRIN EC 81 MG TABLET PO SCH (08:56)
--- NOTE | 2017-03-13 12:29 | ECHO Report ---
Marisol Kwon 03/13/2017 Exam Date: 08:33 Referring Physician: jasmine Valdivia Technologist: NICK KIRK Age: 86 Ht (in): 63 Wt (lb): 151 FExam Location: [facility] Gender: Echo [id number]: Bradycardia, unspecified, Nausea, HyIndications:ponatremia, Atrial fibrillation BP: 145 / 92 HR: 40 SinusRhythm: averageTechnical Quality: IMPRESSIONS Left ventricular ejection fraction is estimated at 60+ %. Diastolic parameters are incomplete. Moderate tricuspid valve regurgitation with a peak regurgitant velocity of 3.42 m/s which corresponds with a right ventricular systolic pressure 47 mmHg plus right atrial pressure. Mild aortic valve calcification. Mild aortic valve stenosis, mean gradient 10 mmHg, ABDELRAHMAN 1.9 cm. Mild aortic valve regurgitation. MEASUREMENTS (Male / Female) Normal Values 2D ECHO LV Diastolic Diameter PLAX 4.1 cm 4.2 - 5.9 / 3.9 - 5.3 cm LV Systolic Diameter PLAX 2.3 cm LV Fractional Shortening PLAX 45.0 % IVS Diastolic Thickness 1.1 cm 0.6 - 1.0 / 0.6 - 0.9 cm LVPW Diastolic Thickness 1.0 cm 0.6 - 1.0 / 0.6 - 0.9 cm RV Internal Dim ED PLAX 3.0 cm Aortic Root Diameter 3.0 cm LA Systolic Diameter LX 4.1 cm 3.0 - 4.0 / 2.7 - 3.8 cm DOPPLER TR Peak Velocity 342.0 cm/s TR Peak Gradient 46.8 mmHg FINDINGS Left Ventricle Normal left ventricular cavity size. Mild left ventricular hypertrophy. Left ventricular ejection fraction is estimated at 60+ %. Diastolic parameters are incomplete. Right Ventricle Mildly increased right ventricular size. Right Atrium The right atrium is mildly enlarged. Left Atrium The left atrium is mildly enlarged. Mitral Valve Morphologically normal mitral valve. Mild mitral annular calcification. Trace mitral valve regurgitation. Aortic Valve Mild aortic valve calcification. Mild aortic valve stenosis, mean gradient 10 mmHg, ABDELRAHMAN 1.9 cm. Mild aortic valve regurgitation. Tricuspid Valve Morphologically normal tricuspid valve. Moderate tricuspid valve regurgitation with a peak regurgitant velocity of 3.42 m/s which corresponds with a right ventricular systolic pressure 47 mmHg plus right atrial pressure Pulmonic Valve Morphologically normal pulmonic valve. Trace pulmonary valve regurgitation. Pericardium Normal pericardium without effusion. Aorta Normal ascending aorta dimension. Farr Tamia (Electronically Signed) 13 March 2017 Final Date: 12:27
--- NOTE | 2017-03-13 13:32 | Hospitalist Progress Note ---
Assessment and Plan (1) Hyponatremia Status: Acute Assessment and plan: 1)hyponatremia- this was not a problem when she was discharged on 02/[address] Townsend who started HCTZ at discharge. I think the HCTZ is the culprit. It has been stopped. She is dehydrated and responding to IV NS with imprved NA to 117 this morning. Continue the fluids for now. 2)UTI- GNR- kruger removed. begin Ceftriaxone. 3)afib with braadycardia- anticoagulated. cardiology to see. rates are 33-53. This has been a problem before. BP stable. No shortness of breath at rest. Her hypothyroidism is adequately treated reflected by her normal TSH. anticoagulated with Eliquis. Current Visit: Yes (2) Atrial fibrillation Status: Chronic Current Visit: Yes (3) Urinary tract infection Status: Acute Current Visit: Yes (4) Bradycardia Status: Acute Current Visit: Yes Hospitalist: Subjective Interval history: Mrs Kwon is doing much better than she was in the ER when I compare DR García's exam to mine this morning. She is alert and talkative and appropriate in her questions and answers. No pain, no shortness of breath. She is eager to see the dial lathe operator. She is even more eager to have her kruger removed. Exam - Constitutional Vitals: Period Temp Pulse Resp BP Sys/Goff Pulse Ox Last 24 Hr 97.2 F-98.7 F 33-58 16-20 106-147/5-70 93-100 General appearance: normal weight, no acute distress - Head Head exam: Present: normocephalic, atraumatic - Eye Eye exam: Present: EOMI. Absent: scleral icterus - Respiratory Respiratory exam: Present: clear to auscultation bilaterally - Cardiovascular Cardiovascular exam: Present: bradycardia, irregular rhythm - GI/Abdominal GI/Abdominal exam: Present: normal bowel sounds, soft. Absent: tenderness - Extremities Exam Extremities exam: Absent: edema (skin appears dry, skin tenting present) - Neurological Exam Neurological exam: Present: alert, oriented X3 - Psychiatric Psychiatric exam: Present: normal affect, normal mood Results - Labs CBC & BMP: 03/13/17 04:57 03/13/17 04:57 Lab Results: I have reviewed the past 24 hour labs Quality Measures - VTE Contraindication to Pharmacological VTE Prophylaxis: Already on Theraputic Agent , No Prophylaxis Needed
--- NOTE | 2017-03-13 14:14 | Cardiology Consult Note ---
Kameron Barr April RN, am scribing for, and in the presence of, Josef Saez MD 14:09. Assessment and Plan - Time spent with patient Time spent with patient: Greater than 30 minutes (Due to assessment, planning, documentation, medication review) (1) Hyponatremia Status: Acute Current Visit: Yes (2) Atrial fibrillation Status: Chronic Current Visit: Yes (3) Urinary tract infection Status: Acute Current Visit: Yes (4) Hypothyroidism Status: Chronic Current Visit: Yes (5) Bradycardia Status: Acute Current Visit: Yes History of Present Illness - Data of Consult Patient: known to practice within the last 3 years Consult date: 03/13/17 Requesting Physician: Vesta Mendoza - Consult Narrative Reason for consult: Bradycardia History of present illness: Blurb Writer: Dr. Guaman Ms. Kwon is a 86 year old female who is followed by Dr. Guaman. She is a poor historian so her history is obtained from the chart. She has a history of atrial fibrillation, CHF, hypothyroidism, and macular degeneration. Surgical history includes cardioversion, kyphoplasty, right mastectomy, and hysterectomy. Family history is positive for son and siblings with diabetes. She lives at [facility]. She is unable to tell me why she came to the hospital. She says she did not sleep well and is having trouble thinking. She is oriented to place, stating she is at [facility]. When asked about the date, she tells me [phone], which I believe is her phone number. During the interview at numerous times when I ask questions either she says she cannot think or she gives me that same series of numbers. According to the admission note, she has had increasing nausea and vomiting for the past 4 days with decreased oral intake and decreased urine output. EKG showed atrial fibrillation with slow ventricular response, heart rate of 49. She is on amiodarone and eliquis, the amiodarone is being held. She has been started on IV fluid. EKG this morning with sinus bradycardia with heart rate of 37. She can only tell me that she is sleepy. She denies any chest pain, shortness of breath, or palpitations. Oxygen is in use via nasal cannula, O2 sat 98%. Chest x-ray showed no acute findings. CT of the head with no acute intracranial abnormality identified. An echo has been ordered. Lab data today: White count was 14.4 on admission, 10.5 this morning Hemoglobin 9.6 hematocrit 26.7 Sodium 117 potassium 5.8 chloride 85 CO2 21 BUN 27 creatinine 2.00 Magnesium 2.5 Troponin negative 3 BNP 1676 Preliminary urine C&S with gram-negative rods Cardiology addendum. Patient examined chart review discussed with nurse Stefania Melo RN. 86-year-old woman from [facility] admitted with severe hyponatremia serum sodium 113 altered mental status and UTI. She was also back in atrial fibrillation with a slow ventricular rate. The patient has a history of paroxysmal atrial fib. She is on amiodarone 200 mg daily to try to maintain sinus rhythm. She has had cardioversion in the past. She takes Eliquis for chronic anticoagulation. Urine culture growing gram-negative rods. Heart rate is around 40 and she is having some P-wave activity at this time. Blood pressure is 150/80. Elevated BNP 1676 chest x-ray shows cardiomegaly with CHF and a calcified aortic knob. Serum sodium is 113 on presentation and she does take HCTZ 12.5 mg daily. Patient has history of diastolic dysfunction. Plan Monitor rhythm DC HCTZ and lisinopril Echo Doppler Normal saline hydration Repeat labs in a.m. Awaiting urine final organism ID and sensitivity CC: Iris Rankin MD - Home Medications and Allergies Home Medications: Home Medications Medication Instructions Recorded Confirmed Type Amiodarone HCl 200 mg PO DAILY 10/17/16 03/12/17 History Calcium Carbonate/Vitamin D3 1 each PO DAILY 10/17/16 03/12/17 History [Caltrate 600 Plus D3 Tablet] Lisinopril 10 mg PO DAILY 10/17/16 03/12/17 History Apixaban [Eliquis] 2.5 mg PO BID 02/22/17 03/12/17 History Cyanocobalamin (Vitamin B-12) 1,000 mcg IJ Q30D 02/22/17 03/12/17 History [Cyanocobalamin Injection] Lactobacillus Combo No.6 1 each PO DAILY 02/22/17 03/12/17 History [Probiotic Complex] Aspirin EC Tab 81 mg PO DAILY #30 tablet 02/23/17 03/12/17 Rx amLODIPine [Norvasc] 5 mg PO DAILY #30 tablet 02/23/17 03/12/17 Rx hydroCHLOROthiazide 12.5 mg PO DAILY #30 capsule 02/23/17 03/12/17 Rx [Hydrochlorothiazide] Phenazopyridine HCl [Pyridium] 200 mg PO TID #9 tablet 03/11/17 03/12/17 Rx Ketorolac Tab [Toradol Tab] 10 mg PO Q6H PRN 03/12/17 03/12/17 History Levothyroxine Tab [Synthroid Tab] 100 mcg PO DAILY 03/12/17 03/12/17 History Sulfameth/Trimeth 800-160 Tab 1 tablet PO BID 03/12/17 03/12/17 History [Bactrim DS Tab] Allergies/Adverse Reactions: Allergies Allergy/AdvReac Type Severity Reaction Status Date / Time codeine Allergy Unknown/Unable Verified 03/04/17 23:59 to obtain ROS unobtainable: due to mental status Medical,Surgical,& Family Hx - Medical History Cardio: History of: Cardiac Dysrhythmia (afib), Hypertension HEENT: History of: Eye Problem (Macular Degeneration) Endocrine: History of: Thyroid Disorder (HYPO) - Surgical History Reproductive Surgeries: Surgical HX of;: Breast Surgery (right mastectomy), Hysterectomy Additional Surgical History: Cardioversion, kyphoplasty - Family History Family History: Reports;: Family Diabetes (Son and siblings) - Social History Smoking Status: Former smoker (In the remote past) Have you smoked in the last 12 months: No Frequency of Alcohol Use: None Type of Drug Use: None Lives With:: At [facility] Functional capacity: independent ambulation Physical Examination Vital Signs Temp Pulse Resp BP Pulse Ox 97.2 F L 47 L 17 127/33 100 03/12/17 17:07 03/12/17 17:07 03/12/17 17:07 03/12/17 17:07 03/12/17 17:07 General: Present: Other (Conversive, but has trouble finding her words) HEENT: Present: Normocephaly, Mucus Membranes Moist Neck: Present: Supple Neck, Midline Trachea, No Bruit Cardiac: Present: Regular Rhythm, No Murmur, Bradycardia Lungs: Present: Normal Breath Sounds, Oxygen (Via nasal cannula), No Wheeze, Rales, Rhonchi Neuro: Present: Other (Oriented to place). Absent: Resting Tremor, Essential Tremor Abdomen: Present: Soft, Active Bowel Sounds, Non-Tender. Absent: Distended Skin: Absent: Rash, Suspicious Lesions Extremities: Present: No Edema, Normal Upper Extr. Pulses, Normal Lower Extr. Pulses Result/EKG - Labs CBC & BMP: 03/13/17 04:57 03/13/17 04:57 Lab Results: I have reviewed the past 24 hour labs Labs: Laboratory Results - last 24 hr 03/12/17 03/12/17 03/12/17 17:28 17:28 18:58 WBC 14.4 H RBC 3.14 L Hgb 10.4 L Hct 28.3 L MCV 90.1 MCH 33 MCHC 36.7 H RDW 13.2 Plt Count 244 MPV 10.3 Neut % (Auto) 80.5 H Lymph % (Auto) 9.7 L [place] % (Auto) 7.2 Eos % (Auto) 0.1 Baso % (Auto) 0.1 Neut # (Auto) 11.6 H Lymph # (Auto) 1.4 [place] # (Auto) 1.0 H Eos # (Auto) 0.0 Baso # (Auto) 0.0 Immature Gran % 2.4 Nucleated RBC % 0.0 Immature Gran # 0.34 Nucleated RBCs # 0.00 Sodium 113 L* Potassium 5.6 H Chloride 81 L Carbon Dioxide 21 Anion Gap 16.6 H BUN 26 H Creatinine 2.20 H GFR Calculation 19 BUN/Creatinine Ratio 11.00 Glucose 164 H Calculated Osmolality 237.2 L Calcium 8.1 L Magnesium Total Bilirubin < 0.39 AST 42 H ALT 53 Alkaline Phosphatase 92 Total Creatine Kinase 88 CK-MB (CK-2) 1.7 Troponin I 0.018 B-Natriuretic Peptide Total Protein 6.0 L Albumin 3.1 L Globulin 2.9 Albumin/Globulin Ratio 1.0 L Lipase 210.0 Free T4 TSH 3rd Generation Urine Color [place] Urine Appearance Clear Urine pH 6.0 Ur Specific [place] 1.008 Urine Protein Negative Urine Glucose (UA) Negative Urine Ketones Negative Urine Blood Negative Urine Nitrate Positive H Urine Bilirubin Negative Urine Urobilinogen 4.0 H Urine Leukocytes Negative Urine RBC <1 Urine WBC 7 Urine Bacteria Occasional Urine Mucus Occasional Ur Culture Indicated? Results to follow 03/13/17 03/13/17 03/13/17 00:46 00:46 00:46 WBC RBC Hgb Hct MCV MCH MCHC RDW Plt Count MPV Neut % (Auto) Lymph % (Auto) [place] % (Auto) Eos % (Auto) Baso % (Auto) Neut # (Auto) Lymph # (Auto) [place] # (Auto) Eos # (Auto) Baso # (Auto) Immature Gran % Nucleated RBC % Immature Gran # Nucleated RBCs # Sodium Potassium Chloride Carbon Dioxide Anion Gap BUN Creatinine GFR Calculation BUN/Creatinine Ratio Glucose Calculated Osmolality Calcium Magnesium 2.2 Total Bilirubin AST ALT Alkaline Phosphatase Total Creatine Kinase CK-MB (CK-2) Troponin I 0.029 B-Natriuretic Peptide Total Protein Albumin Globulin Albumin/Globulin Ratio Lipase Free T4 1.63 H TSH 3rd Generation 3.740 Urine Color Urine Appearance Urine pH Ur Specific [place] Urine Protein Urine Glucose (UA) Urine Ketones Urine Blood Urine Nitrate Urine Bilirubin Urine Urobilinogen Urine Leukocytes Urine RBC Urine WBC Urine Bacteria Urine Mucus Ur Culture Indicated? 03/13/17 03/13/17 03/13/17 04:57 04:57 04:57 WBC 10.5 RBC 2.96 L Hgb 9.6 L Hct 26.7 L MCV 90.2 MCH 32 MCHC 36.0 RDW 13.4 Plt Count 226 MPV 10.9 Neut % (Auto) 71.3 Lymph % (Auto) 16.1 L [place] % (Auto) 10.7 Eos % (Auto) 0.2 Baso % (Auto) 0.1 Neut # (Auto) 7.5 H Lymph # (Auto) 1.7 [place] # (Auto) 1.1 H Eos # (Auto) 0.0 Baso # (Auto) 0.0 Immature Gran % 1.6 Nucleated RBC % 0.0 Immature Gran # 0.17 Nucleated RBCs # 0.00 Sodium 117 L* Potassium 5.8 H Chloride 85 L Carbon Dioxide 21 Anion Gap 16.8 H BUN 27 H Creatinine 2.00 H GFR Calculation 22 BUN/Creatinine Ratio 13.00 Glucose 90 Calculated Osmolality 240.6 L Calcium 7.8 L Magnesium 2.5 H Total Bilirubin AST ALT Alkaline Phosphatase Total Creatine Kinase 98 CK-MB (CK-2) Troponin I 0.030 B-Natriuretic Peptide 1676 H Total Protein Albumin Globulin Albumin/Globulin Ratio Lipase Free T4 TSH 3rd Generation Urine Color Urine Appearance Urine pH Ur Specific [place] Urine Protein Urine Glucose (UA) Urine Ketones Urine Blood Urine Nitrate Urine Bilirubin Urine Urobilinogen Urine Leukocytes Urine RBC Urine WBC Urine Bacteria Urine Mucus Ur Culture Indicated? - Diagnostic Findings Procedure: Chest x-ray: report reviewed by me - EKG EKG results: interpreted by me EKG shows: bradycardia, sinus rhythm Quality Measures - VTE Contraindication to Pharmacological VTE Prophylaxis: Already on Theraputic Agent , No Prophylaxis Needed Nadja Barr Thomas, MD, personally performed the services described in this documentation, ascribed by Stefania Melo RN in my presence, and it is both accurate and complete 413 .
[2017-03-13] MEDS: cefTRIAXone 1,000 MG in SODIUM CHLORIDE 0.9% 100 ML IV SCH (14:25)
[2017-03-14] MEDS: ALBUTEROL 1.25 MG/3 ML NEB RESP TX SCH ×7 (00:22→23:38)
[2017-03-14] MEDS: SODIUM CHLORIDE 0.9% 1,000 ML IV SCH ×3 (01:49→14:11)
[2017-03-14] MEDS: LEVOTHYROXINE 100 MCG TABLET PO SCH (06:18)
[2017-03-14 07:40] LABS: Basophils % 0.3 % (0.0-0.8); Eosinophils # 0.1 10*3/uL (0.0-0.87); Eosinophils % 0.9 % (0.00-10.9); Hemoglobin 11.1 GM/DL (12.0-16.0); Lymphocytes # 1.3 10*3/uL (1.4-4.0); Lymphocytes % 12.3 % (21.3-54.2); Mean Corpuscular HGB Conc 35.8 GM/DL (32-36); Mean Corpuscular Hemoglobin 33 PG (27-34); Mean Corpuscular Volume 90.9 FL (87-102); Mean Platelet Volume 10.4 FL (9.6-12.0); Monocytes % 10.2 % (1.7-12.7); Neutrophils # 7.7 10*3/uL (1.4-7.4); Neutrophils % 75.3 % (38.7-73.9); Platelet Count 253 T/CUMM (130-400); Red Blood Count 3.41 MC/CUMM (3.8-5.5); Red Cell Distribution Width 13.7 % (9.3-17.3); White Blood Count 10.2 T/CUMM (4-12)
[2017-03-14 08:24] LABS: Calcium 8.8 MG/DL (8.5-10.1); Osmolality,Calculated 263.7 MOS/KG (273-304)
[2017-03-14] MEDS: APIXABAN 2.5 MG TABLET PO SCH ×2 (08:34→20:55)
[2017-03-14] MEDS: ASPIRIN EC 81 MG TABLET PO SCH (08:34)
--- NOTE | 2017-03-14 09:15 | Cardiology Progress Note ---
Assessment and Plan (1) Hyponatremia Status: Acute Current Visit: Yes (2) Atrial fibrillation Status: Chronic Current Visit: Yes (3) Urinary tract infection Status: Acute Current Visit: Yes (4) Hypothyroidism Status: Chronic Current Visit: Yes (5) Bradycardia Status: Acute Current Visit: Yes Cardiology - PN: Subj Interval history: Cardiology note 86-year-old woman admitted with severe hyponatremia sodium 113 altered mental status and UTI and atrial fib with slow ventricular rate. Sodium today is up to 131. She is much more alert and awake. Telemetry shows steady sinus rhythm in the 60s. Blood pressure 140/74 O2 sat 95% on 2 L Regular rhythm soft systolic murmur Decreased breath sounds but clear Abdomen soft benign No leg edema Lab data today Sodium up to 131 ,potassium down to 5.0 ,chloride 102 CO2 21 BUN 19 and creatinine down to 1.40 Echo shows ejection fraction of 60% with aortic valve sclerosis and mild AI, normal RV function with moderate TR, PA pressure 55-60 Impression Hyponatremia improving sodium up to 131 Patient has converted to sinus rhythm Urine culture growing gram-negative rods Diastolic dysfunction Echo showed ejection fraction of 60% with aortic sclerosis mild AI and PA pressure 55-60 Plan Normal saline hydration BMP in a.m. Ceftriaxone Restart Norvasc 5 mg daily Eliquis 2.5 mg twice daily Exam (Progress Note) - Constitutional Vitals: Period Temp Pulse Resp BP Sys/Goff Pulse Ox Last 24 Hr 96.5 F-98.5 F 33-85 16-20 117-155/5-71 94-100 Result/EKG - Labs CBC & BMP: 03/14/17 07:34 03/14/17 07:34 Labs: Laboratory Results - last 24 hr 03/14/17 03/14/17 03/14/17 05:52 07:34 07:34 WBC 10.2 RBC 3.41 L Hgb 11.1 L Hct 31.0 L MCV 90.9 MCH 33 MCHC 35.8 RDW 13.7 Plt Count 253 MPV 10.4 Neut % (Auto) 75.3 H Lymph % (Auto) 12.3 L [place] % (Auto) 10.2 Eos % (Auto) 0.9 Baso % (Auto) 0.3 Neut # (Auto) 7.7 H Lymph # (Auto) 1.3 L [place] # (Auto) 1.0 H Eos # (Auto) 0.1 Baso # (Auto) 0.0 Immature Gran % 1.0 Nucleated RBC % 0.0 Immature Gran # 0.10 Nucleated RBCs # 0.00 Sodium 131 L Potassium 5.0 Chloride 102 Carbon Dioxide 21 Anion Gap 13.0 BUN 19 H Creatinine 1.40 H GFR Calculation 33 BUN/Creatinine Ratio 13.00 Glucose 103 Calculated Osmolality 263.7 L Calcium 8.8 Troponin I 0.041 Quality Measures - VTE Contraindication to Pharmacological VTE Prophylaxis: Already on Theraputic Agent , No Prophylaxis Needed
[2017-03-14] MEDS: amLODIPine 5 MG TABLET PO SCH (13:15)
--- NOTE | 2017-03-14 13:26 | Hospitalist Progress Note ---
Assessment and Plan (1) Hyponatremia Status: Acute Assessment and plan: 1)hyponatremia- this was not a problem when she was discharged on 02/[address] Townsend who started HCTZ at discharge. I think the HCTZ is the culprit. It has been stopped. dehydration resolved, can stop IVF. Plan discharge tomorrow. 2)UTI due to Klebsiella- kruger removed. Day 2 Ceftriaxone. 3)afib with braadycardia- anticoagulated with Eliquis. She converted to NSR with normal rate. BP stable. Norvasc restarted. Current Visit: Yes (2) Atrial fibrillation Status: Chronic Current Visit: Yes (3) Urinary tract infection Status: Acute Current Visit: Yes (4) Bradycardia Status: Acute Current Visit: Yes Hospitalist: Subjective Interval history: Mrs Kwon is bright and talkative today. She is oriented when I talk to her but her nurse Seema reports that she was disoriented and fretful earlier this morning. Mrs Kwon says she has trouble with her memory and has had to stop driving and move to assisted living [facility]. She denies shortness of breath or pain. No dizziness. Eating well. Exam - Constitutional Vitals: Period Temp Pulse Resp BP Sys/Goff Pulse Ox Last 24 Hr 96.5 F-98.5 F 33-85 16-20 117-155/41-71 94-100 General appearance: normal weight, no acute distress - Eye Eye exam: Present: EOMI. Absent: scleral icterus - Respiratory Respiratory exam: Present: clear to auscultation bilaterally - Cardiovascular Cardiovascular exam: Present: regular rate and rhythm - GI/Abdominal GI/Abdominal exam: Present: normal bowel sounds, soft. Absent: tenderness - Extremities Exam Extremities exam: Absent: edema Results - Labs CBC & BMP: 03/14/17 07:34 03/14/17 07:34 Lab Results: I have reviewed the past 24 hour labs Quality Measures - VTE Contraindication to Pharmacological VTE Prophylaxis: Already on Theraputic Agent , No Prophylaxis Needed
[2017-03-14] MEDS: cefTRIAXone 1,000 MG in SODIUM CHLORIDE 0.9% 100 ML IV SCH (14:12)
--- NOTE | 2017-03-14 15:37 | Physician Query Form ---
CLICK EDIT DOCUMENT TO SELECT QUERY ANSWER --> OK --> SIGN Adriana Hilliard RN Clinical Field Operations Supervisor W) [phone] (f) [phone] [email or web address] PROVIDERS: Make your selection(s) from the choices in EACH section by typing an "x" and enter comments in the comment section. Please use your independent medical judgment in providing your response. This request does not imply that any particular answer is desired or expected. CLINICAL INDICATORS: (Providers should not edit this section) Based on lab results of creatinine on admission of 2.20 with a GFR of 19 and decreased to 1.40. Pt. treated with IV fluids of Normal Saline. Clarify which of the following most accurately represents the patient's renal status: ( x) Acute kidney injury (non-traumatic) ( ) Acute renal failure ( ) Acute renal failure with underlying Chronic Kidney Disease (CKD) - please provide stage below ( ) CKD - please provide stage below ( ) Other, please specify: ( ) Clinically unable to determine Chronic Kidney Disease Stages Source: National Kidney Disease Foundation ( ) Stage I (eGFR > or = 90) ( ) Stage II (eGFR 60 - 89) ( ) Stage III (eGFR 30 - 59) ( ) Stage IV (eGFR 15 - 29) ( ) Stage V (eGFR < 15 or dialysis) COMMENTS: PLEASE ALSO DOCUMENT RESPONSE IN PROGRESS NOTES AND/OR DISCHARGE SUMMARY Use of terms such as suspected, likely, or probable (associated with a specific diagnosis that is being evaluated, monitored, or treated as if it exists) are acceptable and can be restated in the discharge summary if not ruled out. MTDD
[2017-03-14] MEDS: CIPROFLOXACIN 250 MG TABLET PO SCH ×2 (16:43→20:55)
[2017-03-15] MEDS: ALBUTEROL 1.25 MG/3 ML NEB RESP TX SCH ×2 (03:17→07:07)
[2017-03-15 06:11] LABS: Calcium 8.3 MG/DL (8.5-10.1); Osmolality,Calculated 268.2 MOS/KG (273-304); Potassium 4.7 MMOL/L (3.5-5.1)
[2017-03-15] MEDS: LEVOTHYROXINE 100 MCG TABLET PO SCH (06:20)
[2017-03-15] MEDS: CIPROFLOXACIN 250 MG TABLET PO SCH (10:02)
[2017-03-15] MEDS: ASPIRIN EC 81 MG TABLET PO SCH (10:02)
[2017-03-15] MEDS: APIXABAN 2.5 MG TABLET PO SCH (10:03)
[2017-03-15] MEDS: amLODIPine 5 MG TABLET PO SCH (10:03)
--- NOTE | 2017-03-15 10:05 | Discharge Summary ---
Hospital Course - Hospital Course Hospital Course: Mrs Kwon presented with nausea and a sodium of 113. Her nausea has been present for about a month, roughly since startign HCTZ after last admit. The HCTZ had caused her hyponatremia which has been corrected with NS rehydration. She is back to her baseline and will return to [facility] today. While here she was also in slow afib but her heart rate increased when she spontaneously converted to NSR. She has a Klebsiella UTI and will complete treatment with oral cipro. She will follow up with Dr Guaman and with her PCP. - Time spent with patient Time with patient DS: Greater than 30 minutes (care coordination with case management for discharge planning, documetnation, medicine reconciliation took 35 minutes.) Diagnosis - Discharge Diagnosis (1) Hyponatremia Status: Resolved (2) Atrial fibrillation Status: Chronic (3) Urinary tract infection Status: Resolved (4) Bradycardia Status: Resolved Specialty Discharge - Follow Up or Referrals Follow up with: Zhang Guaman MD [Physician] - 04/15/17 9:40 am (hyponatremia dueto HCTZ, bradycardia, afib) Your, PCP [Other] (1 week) Discharge Plan - Discharge Data Disposition: Disch/Xfer to Snf Condition at Discharge: Stable Discharge Diet: heart healthy Activity: as per physical therapy - Discharge Medications New amLODIPine [Norvasc] 5 mg PO DAILY tablet Ciprofloxacin Tab [Cipro Tab] 250 mg PO Q12HR #10 tablet Continue Calcium Carbonate/Vitamin D3 [Caltrate 600 Plus D3 Tablet] 1 each PO DAILY Apixaban [Eliquis] 2.5 mg PO BID Lactobacillus Combo No.6 [Probiotic Complex] 1 each PO DAILY Aspirin EC Tab 81 mg PO DAILY #30 tablet Levothyroxine Tab [Synthroid Tab] 100 mcg PO DAILY Cyanocobalamin (Vitamin B-12) [Cyanocobalamin Injection] 1,000 mcg IJ Q30D Discontinued Amiodarone HCl 200 mg PO DAILY hydroCHLOROthiazide [Hydrochlorothiazide] 12.5 mg PO DAILY #30 capsule Phenazopyridine HCl [Pyridium] 200 mg PO TID #9 tablet Lisinopril 10 mg PO DAILY amLODIPine [Norvasc] 5 mg PO DAILY #30 tablet Sulfameth/Trimeth 800-160 Tab [Bactrim DS Tab] 1 tablet PO BID Ketorolac Tab [Toradol Tab] 10 mg PO Q6H PRN PRN Reason: Pain - Follow Up or Referral Follow Up: Zhang Guaman MD [Physician] - 04/15/17 9:40 am (hyponatremia dueto HCTZ, bradycardia, afib) - Forms/Instructions Instructions: Bradycardia (DC) Exam - Constitutional Vitals: Period Temp Pulse Resp BP Sys/Goff Pulse Ox Last 24 Hr 97.0 F-97.7 F 31-72 16-20 138-158/41-71 96-100 General appearance: normal weight, no acute distress - Head Head exam: Present: normocephalic, atraumatic - Eye Eye exam: Present: EOMI. Absent: scleral icterus Pupils: Present: EUNICE - Respiratory Respiratory exam: Present: clear to auscultation bilaterally - Cardiovascular Cardiovascular exam: Present: regular rate and rhythm - GI/Abdominal GI/Abdominal exam: Present: normal bowel sounds, soft - Extremities Exam Extremities exam: Absent: edema Discharge Results Labs on day of discharge: Labs from last 24 hours 03/15/17 03/12/17 04:42 17:28 Sodium 134 L Potassium 4.7 Chloride 102 Carbon Dioxide 22 Anion Gap 14.7 BUN 17 Creatinine 1.20 H GFR Calculation 39 BUN/Creatinine Ratio 14.00 Glucose 84 Calculated Osmolality 268.2 L Calcium 8.3 L NT-Pro-B Natriuret Pep 9670 H DS: Provider Date of admission: 03/12/17 19:30 Primary care physician: Linda Caal Attending physician on admission: Vesta Mendoza MD Consults: 03/13/17 00:36 Consult to Physician [CONS] Routine Comment: Consulting Provider: Cardiology - [facility] Consulting Provider Notified: No When should Consulting Provider be notified: In am Consult to Specialist Group: Cardiology Person Notified: pawan Date Notified: 03/13/17 Time Notified: 07:50 03/15/17 09:45 Consult to Physical Therapy [CONS] Routine Reason for Physical Therapy: Evaluate and Treat 03/15/17 09:47 Consult to Occupational Therapy [CONS] Routine Reason for Occupational Therapy: Evaluate and Treat Discharging clinician: Iris Rankin MD
--- NOTE | 2017-03-15 11:43 | Cardiology Progress Note ---
Assessment and Plan (1) Hyponatremia Status: Acute Current Visit: Yes (2) Atrial fibrillation Status: Chronic Current Visit: Yes (3) Urinary tract infection Status: Acute Current Visit: Yes (4) Hypothyroidism Status: Chronic Current Visit: Yes (5) Bradycardia Status: Acute Current Visit: Yes Cardiology - PN: Subj Interval history: cardiology note Feels better O2 sat 97% Telemetry shows steady sinus rhythm. Serum sodium has risen to 134. Creatinine is down to 1.20. Regular rhythm with soft systolic murmur as before. Decreased breath sounds but clear. Abdomen nontender. No leg edema. 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 Exam (Progress Note) - Constitutional Vitals: Period Temp Pulse Resp BP Sys/Goff Pulse Ox Last 24 Hr 97.0 F-97.7 F 31-72 16-20 142-158/58-71 96-100 Result/EKG - Labs CBC & BMP: 03/14/17 07:34 03/15/17 04:42 Labs: Laboratory Results - last 24 hr 03/12/17 03/15/17 17:28 04:42 Sodium 134 L Potassium 4.7 Chloride 102 Carbon Dioxide 22 Anion Gap 14.7 BUN 17 Creatinine 1.20 H GFR Calculation 39 BUN/Creatinine Ratio 14.00 Glucose 84 Calculated Osmolality 268.2 L Calcium 8.3 L NT-Pro-B Natriuret Pep 9670 H Quality Measures - VTE Contraindication to Pharmacological VTE Prophylaxis: Already on Theraputic Agent , No Prophylaxis Needed Specialty Discharge - Follow Up or Referrals Follow up with: Zhang Guaman MD [Physician] - 04/15/17 9:40 am (hyponatremia dueto HCTZ, bradycardia, afib)
[2017-03-15 12:23] VITALS: BP 144/53
== END 2017-03-15 13:08 | disposition home health service (06) | DRG 641 ==
LOC: EDBD → EDUNIT# → N.ED 17:03 → N.EDINP 19:30 → SUATTDRO 19:30 → N.TELES 19:50
PROVIDERS: ADMIT Internal Medicine; ATTEND Internal Medicine

== ENCOUNTER 2017-04-29 13:41 | Inpatient (IN) ==
[2017-04-29] MEDS ORDERED: SODIUM CHLORIDE 0.9% 1,000 ML IV STA (14:09)
[2017-04-29] MEDS ORDERED: LOPERAMIDE 2 MG CAPSULE PO STA (14:09)
[2017-04-29] MEDS ORDERED: PROMETHAZINE 25 MG/1 ML VIAL IM STA (14:10)
--- NOTE | 2017-04-29 14:16 | Emergency Department Note ---
Leon Barr Manpreet, am scribing for, and in the presence of, Rommel Pickett MD 14: 10. Nieves Barr James D, MD, personally performed the services described in this documentation, ascribed by Jay Jay Quintero in my presence, and it is both accurate and complete 414 . Arrival - Arrival Chief Complaint: Nausea/Vomiting/Diarrhea Stated Complaint: N/V/D ED Nursing Triage Note: PT STATES SHE HAS HAD DIARRHEA THIS AM AND IS UNABLE TO STOP IT Mode of Arrival: Stretcher Limitations: No Limitations Source: Patient, RN Notes Reviewed - History of Present Illness HPI Narrative: Pt is a 86 y/o female who presents to the ED with CC of diarrhea that began yesterday. Pt has been unable to control it. Pt denies any Abd pain, fever, chills, or N/V. Pt lives at [facility] and sees Linda Su at [place]. No other pains/complaints reported to the ED. Onset (ago): hour(s) Consistency: constant Severity: moderate Allergies/Adverse Reactions: Allergies Allergy/AdvReac Type Severity Reaction Status Date / Time codeine Allergy Unknown/Unable Verified 03/04/17 23:59 to obtain Home Medications: Home Medications Medication Instructions Recorded Confirmed Type Calcium Carbonate/Vitamin D3 1 each PO DAILY 10/17/16 03/12/17 History [Caltrate 600 Plus D3 Tablet] Apixaban [Eliquis] 2.5 mg PO BID 02/22/17 03/12/17 History Cyanocobalamin (Vitamin B-12) 1,000 mcg IJ Q30D 02/22/17 03/12/17 History [Cyanocobalamin Injection] Lactobacillus Combo No.6 1 each PO DAILY 02/22/17 03/12/17 History [Probiotic Complex] Aspirin EC Tab 81 mg PO DAILY #30 tablet 02/23/17 03/12/17 Rx Levothyroxine Tab [Synthroid Tab] 100 mcg PO DAILY 03/12/17 03/12/17 History Ciprofloxacin Tab [Cipro Tab] 250 mg PO Q12HR #10 tablet 03/15/17 Rx amLODIPine [Norvasc] 5 mg PO DAILY tablet 03/15/17 Rx Review of System - Review of System 12 point system: reviewed and no additional remarkable complaints except as stated - Review of System Constitutional: Absent: chills, diaphoresis, fever Respiratory: Absent: cough, respiratory distress, wheezing Cardiovascular: Absent: chest pain Gastrointestinal: Present: diarrhea. Absent: abdominal pain, nausea, vomiting Genitourinary female: Absent: dysuria Musculoskeletal: Absent: back pain, neck pain Neurological: Absent: headache, weakness, numbness, paresthesias Medical,Surgical,& Family Hx - Medical History Cardio: History of: Cardiac Dysrhythmia (afib), Hypertension, Cardiovascular Problems (a-fib) Neurology: No history of: Seizures HEENT: History of: Eye Problem (Macular Degeneration) Endocrine: History of: Thyroid Disorder (HYPO) Genitourinary: History of: Recurring Urinary Tract Infections Hematology: History of: Anemia - Surgical History Reproductive Surgeries: Surgical HX of;: Breast Surgery (right mastectomy), Hysterectomy - Family History Family History: Reports;: Family Diabetes (Son and siblings), Family Hypertension - Social History Smoking Status: Former smoker Exam Vital Signs: Vital Signs Temperature 97.2 F L 04/29/17 13:53 Pulse Rate 90 04/29/17 13:53 Respiratory Rate 18 04/29/17 13:53 Blood Pressure 146/81 04/29/17 13:53 O2 Sat by Pulse Oximetry 99 04/29/17 13:53 GENERAL: This is a well-nourished well-developed white female in no apparent distress. VITAL SIGNS: Reviewed HEENT: Head is atraumatic and normocephalic. Pupils are equal round react to light. Extraocular movements are intact. Oropharynx is benign with slightly dry mucous membranes. NECK: Neck is soft and supple without tenderness. There are no masses. There is no lymphadenopathy. LUNGS: Lungs are clear to auscultation. Chest rises symmetrically. There is no chest wall tenderness. CV: Heart is regular rate and rhythm without murmurs rubs or gallops. ABDOMEN: Abdomen is soft, nontender to palpation. There are no abdominal abnormal masses palpated. There is no organomegaly. Bowel sounds are present and active. Rectal: Heme positive stool SKIN: Skin is warm and dry. No rash. EXTREMITIES: Patient has full range of motion without tenderness. There is no pedal edema. NEUROLOGIC: Awake alert and oriented 4. Cranial nerves II through XII are grossly intact. Motor is 5 over 5 in all extremities bilaterally. Course - Consultations Consultation #1: Discussed with hospitalist. Patient will be admitted to their service. Time: 16:41 Results - Labs CBC & BMP: 04/29/17 14:28 04/29/17 14:28 Lab Results: I have reviewed the patients labs Disposition Clinical Impression: Diarrhea, Dehydration, Chronic anticoagulation, Renal failure, Heme positive stool Case discussed with: patient Disposition: Still a Patient Condition: Stable
[2017-04-29] MEDS ORDERED: ONDANSETRON 4 MG/2 ML VIAL ONE (14:19)
--- NOTE | 2017-04-29 14:42 | Ultrasound Report ---
Abdominal ultrasound Indication: Nausea and vomiting Findings: The liver is normal in size and echogenicity. The gallbladder is fluid-filled without evidence of stones or sludge. The gallbladder wall thickness is 1.9 mm. The common bile duct measures 4 mm. The visualized portion of the pancreas appear within normal limits The kidneys normal in size and echogenicity without hydronephrosis or other abnormality. The right renal length is 7.6 cm. Left renal length is 7.2 cm. Spleen, aorta and IVC appear within normal limits. No free fluid or free air seen. Impression: No evidence of abnormality demonstrated. Ultrasound images stored and captured. PROCEDURE INTERPRETED AT [facility] DEPARTMENT OF RADIOLOGY Final Report Signed by: Dr. Dayron Flores
[2017-04-29] MEDS ORDERED: LOPERAMIDE 2 MG CAPSULE ONE (14:43)
[2017-04-29] MEDS ORDERED: PROMETHAZINE 25 MG/1 ML VIAL ONE (14:43)
[2017-04-29 14:45] LABS: Basophils # 0.1 10*3/uL (0.0-0.2); Basophils % 0.3 % (0.0-0.8); Hemoglobin 14.6 GM/DL (12.0-16.0); Immature Granulocytes % 0.8 %; Immature Granulocytes Absolute 0.23 #; Lymphocytes # 0.6 10*3/uL (1.4-4.0); Lymphocytes % 2.2 % (21.3-54.2); Mean Corpuscular Hemoglobin 33 PG (27-34); Mean Corpuscular Volume 96.6 FL (87-102); Mean Platelet Volume 10.3 FL (9.6-12.0); Monocytes # 2.1 10*3/uL (0.11-0.8); Monocytes % 7.5 % (1.7-12.7); Neutrophils # 24.6 10*3/uL (1.4-7.4); Neutrophils % 89.2 % (38.7-73.9); Platelet Count 291 T/CUMM (130-400); Red Blood Count 4.45 MC/CUMM (3.8-5.5); White Blood Count 27.6 T/CUMM (4-12)
[2017-04-29 15:04] LABS: Bilirubin,Total 0.7 MG/DL (0.2-1.0); Calcium 9.9 MG/DL (8.5-10.1); Osmolality,Calculated 276.8 MOS/KG (273-304); Potassium 4.8 MMOL/L (3.5-5.1); Total Protein 7.9 G/DL (6.4-8.3)
[2017-04-29 17:26] LABS: Band Neutrophils 3 % (0-10); Lymphocytes 1 % (20-55); Platelet Estimate Normal; Segmented Neutrophils 95 % (50-85); Total Cells Counted 100
--- NOTE | 2017-04-29 18:41 | Hospitalist History & Physical ---
Assessment and Plan - Time spent with patient Time spent with patient: Greater than 30 minutes (1) Diarrhea Status: Acute Assessment and plan: Intractable nausea and diarrhea. Heme positive stool in the ED. C. difficile toxins a and B are negative. Stool cultures pending. Administer antidiarrheals. Continue antinausea medication. IV antibiotics. Consult GI for heme positive stool. Current Visit: Yes (2) Heme positive stool Status: Acute Assessment and plan: As above. Consult GI. Current Visit: Yes (3) Hypertension Status: Chronic Assessment and plan: Currently well controlled. Continue home medications. Current Visit: No (4) Hypothyroidism Status: Chronic Assessment and plan: Continue home medications. Check TSH and free T4 levels. Current Visit: No (5) Atrial fibrillation Status: Chronic Assessment and plan: Currently not anticoagulated. Current Visit: No History of Present Illness Chief complaint: diarrhea History of present illness: Ms. Kwon is a 86 year old white female resident of [facility] with a past medical history significant for hypertension, hypothyroidism, atrial fibrillation who presents today with intractable nausea and diarrhea having onset 3 days ago. Patient reports that she was last known to be well on . She reports a decreased appetite and states that she has not eaten anything since night. Patient denies any pain, headache, chest pain, shortness of breath, abdominal pain or tenderness, bloating. She confirms several episodes of continuous diarrhea. In the ED, the patient had diarrhea with heme positive stool. She complains extensively of nausea. Patient blood work reveals WBC of 27.6, neutrophils 89.2, BUN of 19, creatinine of 2.10, serum glucose 139. Patient has been given 8 mg of Zofran and 25 mg of Phenergan in the ED as well as a liter of IV fluids. Case has been discussed with both Dr. Blackman, ER physician, and Dr. Mar, admitting physician, and patient will be admitted to the hospital medicine service for further evaluation and treatment. Home medications are reviewed and reconciled. Home Medications Medication Instructions Recorded Confirmed Type Calcium Carbonate/Vitamin D3 1 each PO DAILY 10/17/16 03/12/17 History [Caltrate 600 Plus D3 Tablet] Apixaban [Eliquis] 2.5 mg PO BID 02/22/17 03/12/17 History Cyanocobalamin (Vitamin B-12) 1,000 mcg IJ Q30D 02/22/17 03/12/17 History [Cyanocobalamin Injection] Lactobacillus Combo No.6 1 each PO DAILY 02/22/17 03/12/17 History [Probiotic Complex] Aspirin EC Tab 81 mg PO DAILY #30 tablet 02/23/17 03/12/17 Rx Levothyroxine Tab [Synthroid Tab] 100 mcg PO DAILY 03/12/17 03/12/17 History amLODIPine [Norvasc] 5 mg PO DAILY tablet 03/15/17 Rx Cranberry Fruit [Cranberry Chew 500 mg PO DAILY 04/29/17 04/29/17 History Tab] Ferrous Sulfate [Slow Release Iron] 500 mg PO QAM 04/29/17 04/29/17 History Hydrocodone/Acetaminophen [[place] 0 each PO Q8H PRN 04/29/17 04/29/17 History 10-325 Tablet] Polyethylene Glycol Powder 17 gm PO DAILY PRN 04/29/17 04/29/17 History [Miralax] fentaNYL 12 MCG/HR PATCH 1 patch TRANSDERM Q3DAY 04/29/17 04/29/17 History [Duragesic 12 Patch] Allergies Allergy/AdvReac Type Severity Reaction Status Date / Time codeine Allergy Unknown/Unable Verified 03/04/17 23:59 to obtain Medical,Surgical,& Family Hx - Medical History Cardio: History of: Cardiac Dysrhythmia (afib), Hypertension, Cardiovascular Problems (a-fib) Neurology: No history of: Seizures HEENT: History of: Eye Problem (Macular Degeneration) Endocrine: History of: Thyroid Disorder (HYPO) Genitourinary: History of: Recurring Urinary Tract Infections Hematology: History of: Anemia - Surgical History Reproductive Surgeries: Surgical HX of;: Breast Surgery (right mastectomy), Hysterectomy - Family History Family History: Reports;: Family Diabetes (Son and siblings), Family Hypertension - Social History Smoking Status: Former smoker Frequency of Alcohol Use: None Type of Drug Use: None Marital Status: Lives With:: assisted living center Functional capacity: independent ambulation 12 point system: reviewed and no additional remarkable complaints except as stated Exam - Constitutional Vitals: Period Temp Pulse Resp BP Sys/Goff Pulse Ox Last 24 Hr 97.2 F-97.2 F 90-90 18-18 146-146/81-81 99 Exam: General appearance: normal weight, mild distress - Head Head exam: Present: normocephalic, atraumatic - Eye Eye exam: Present: EOMI. Absent: conjunctival injection, nystagmus Pupils: Present: EUNICE, normal accommodation - ENT ENT exam: Present: normal exam, normal external ear exam - Neck Neck exam: Present: normal inspection. Absent: lymphadenopathy, tenderness, thyromegaly - Respiratory Respiratory exam: Present: clear to auscultation bilaterally. Absent: rales, rhonchi, wheezes - Cardiovascular Cardiovascular exam: Present: regular rate and rhythm. Absent: carotid bruit, gallop, rubs - GI/Abdominal GI/Abdominal exam: Present: Hyperactive bowel sounds. Absent: ascites, distended, mass - Extremities Exam Extremities exam: Present: normal inspection, normal capillary refill. Absent: edema - Back Exam Back exam: Absent: CVA tenderness (L), CVA tenderness (R) - Neurological Exam Neurological exam: Present: alert, oriented X3, CN II-XII intact, reflexes normal - Psychiatric Psychiatric exam: Present: normal affect, normal mood - Skin Skin exam: Present: normal color, warm, dry Results - Labs CBC & BMP: 04/29/17 14:28 04/29/17 14:28 Lab Results: I have reviewed the past 24 hour labs - Diagnostic Findings Procedure: Ultrasound: image reviewed by me, report reviewed by me (Unremarkable )
[2017-04-29] MEDS ORDERED: PROMETHAZINE 25 MG/1 ML VIAL IM PRN (18:52)
[2017-04-29] MEDS ORDERED: ONDANSETRON 4 MG/2 ML VIAL IV STA (18:59)
[2017-04-29] MEDS ORDERED: ENOXAPARIN 30 MG/0.3 ML SYRINGE SUBCUT SCH (19:00)
[2017-04-29] MEDS ORDERED: LEVOFLOXACIN INJ 500 MG in PREMIX 1 EACH IV SCH (19:30)
[2017-04-29] MEDS: SODIUM CHLORIDE 0.9% 1,000 ML IV SCH ×2 (21:46→23:57)
[2017-04-29] MEDS: metroNIDAZOLE INJ 500 MG in PREMIX 1 EACH IV SCH ×2 (21:47→23:57)
[2017-04-30 06:40] LABS: Basophils % 0.2 % (0.0-0.8); Eosinophils % 0.2 % (0.00-10.9); Hematocrit 31.2 VOL% (35.7-47.0); Immature Granulocytes % 0.4 %; Immature Granulocytes Absolute 0.05 #; Lymphocytes # 1.6 10*3/uL (1.4-4.0); Lymphocytes % 11.4 % (21.3-54.2); Mean Corpuscular HGB Conc 34.3 GM/DL (32-36); Mean Corpuscular Hemoglobin 33 PG (27-34); Mean Platelet Volume 10.9 FL (9.6-12.0); Monocytes # 0.9 10*3/uL (0.11-0.8); Monocytes % 6.2 % (1.7-12.7); Neutrophils # 11.1 10*3/uL (1.4-7.4); Neutrophils % 81.6 % (38.7-73.9); Red Cell Distribution Width 14.2 % (9.3-17.3)
[2017-04-30 06:46] LABS: Hemoglobin 10.7 GM/DL (12.0-16.0); Platelet Count 194 T/CUMM (130-400); Red Blood Count 3.25 MC/CUMM (3.8-5.5); White Blood Count 13.6 T/CUMM (4-12)
[2017-04-30 06:55] LABS: Band Neutrophils 3 % (0-10); Eosinophils 1 % (0-10); Lymphocytes 7 % (20-55); Platelet Estimate Adequate; Segmented Neutrophils 84 % (50-85); Total Cells Counted 100
[2017-04-30 06:56] LABS: Giant Platelets Few; Hypochromasia 1+
[2017-04-30 07:03] LABS: Calcium 7.9 MG/DL (8.5-10.1); Osmolality,Calculated 280.5 MOS/KG (273-304); Potassium 4.5 MMOL/L (3.5-5.1)
[2017-04-30] MEDS: LEVOTHYROXINE 100 MCG TABLET PO SCH (08:01)
[2017-04-30] MEDS: PANTOPRAZOLE 40 MG TABLET PO SCH (08:01)
[2017-04-30] MEDS: amLODIPine 5 MG TABLET PO SCH (08:01)
[2017-04-30] MEDS: metroNIDAZOLE INJ 500 MG in PREMIX 1 EACH IV SCH ×2 (08:04→16:36)
--- NOTE | 2017-04-30 10:15 | Gastrointestinal Consult Note ---
<Camille Turcios - Last Filed: 04/30/17 10:10> Assessment and Plan (1) Diarrhea Status: Acute Assessment and plan: 04/30-3 day history of multiple diarrhea stools with questionable reports of hematochezia. On Eliquis therapy for history of atrial fibrillation. No abdominal pain or other associated symptoms other than some mild nausea. Stool studies are negative thus far. Continue to monitor present time. No prior history of colonoscopy. Plan an addendum to followed by Dr. Bahena. Current Visit: Yes (2) Heme positive stool Status: Acute Assessment and plan: 04/30-reports of heme positive stools in the emergency room. Drop in H&H noted from admission to today. No overt bleeding reported. On Eliquis therapy currently being held. Also noted with a history of iron therapy. Continue to monitor H&H. Plan for tentative EGD tomorrow to further evaluate. Plan an addendum to followed by Dr. Bahena. Current Visit: Yes History of Present Illness Chief complaint: Heme positive stools History of present illness: Ms. Kwon is a 86 year old female who was admitted to the hospital on yesterday from [facility] after presenting to see her PCP with complaints of weakness and diarrhea. Patient is a fair historian and unable to provide very many details at this time. She does recall that she was in her usual state of health until Saturday when she began not feeling well. She states that she had lost her appetite and just generally not feeling well. She states on Saturday night, she had an onset of diarrhea stools. She states that she had multiple stools a day with nocturnal defecation as well. She did not witness any hematochezia or melena but she states she recalls the staff at [facility] possibly "seeing blood". She denies any abdominal pain however states she did have some nausea without vomiting. She does report that she is lost 25 pounds but she cannot recall ever what timeframe. She has no prior history of endoscopy in the past and states she has been relatively healthy. She has noted to be on Eliquis with a history of atrial fibrillation. She is also noted to be on iron therapy. She was found in the emergency room to be heme positive and was admitted for further workup. Her stool studies thus far are negative. Her H&H on admission was 14/43 however this is trended downward at 06/18. She is also noted to have some leukocytosis with WBCs at 13,000. She is afebrile. She does not recall any other residents at [facility] having any type of similar symptoms are viruses that she is aware of. She denies any NSAID use. She denies any dysphagia, dyspepsia or GERD. Home Medications Medication Instructions Recorded Confirmed Type Calcium Carbonate/Vitamin D3 1 each PO DAILY 10/17/16 04/29/17 History [Caltrate 600 Plus D3 Tablet] Apixaban [Eliquis] 2.5 mg PO BID 02/22/17 04/29/17 History Cyanocobalamin (Vitamin B-12) 1,000 mcg IJ Q30D 02/22/17 04/29/17 History [Cyanocobalamin Injection] Lactobacillus Combo No.6 1 each PO DAILY 02/22/17 04/29/17 History [Probiotic Complex] Aspirin EC Tab 81 mg PO DAILY #30 tablet 02/23/17 04/29/17 Rx Levothyroxine Tab [Synthroid Tab] 100 mcg PO DAILY 03/12/17 04/29/17 History amLODIPine [Norvasc] 5 mg PO DAILY tablet 03/15/17 04/29/17 Rx Cranberry Fruit [Cranberry Chew 500 mg PO DAILY 04/29/17 04/29/17 History Tab] Ferrous Sulfate [Slow Release Iron] 500 mg PO QAM 04/29/17 04/29/17 History Hydrocodone/Acetaminophen [[place] 0 each PO Q8H PRN 04/29/17 04/29/17 History 10-325 Tablet] Polyethylene Glycol Powder 17 gm PO DAILY PRN 04/29/17 04/29/17 History [Miralax] fentaNYL 12 MCG/HR PATCH 1 patch TRANSDERM Q3DAY 04/29/17 04/29/17 History [Duragesic 12 Patch] Allergies Allergy/AdvReac Type Severity Reaction Status Date / Time codeine Allergy Unknown/Unable Verified 03/04/17 23:59 to obtain Medical,Surgical,& Family Hx - Medical History Cardio: History of: Cardiac Dysrhythmia (afib), Hypertension, Cardiovascular Problems (a-fib) Neurology: No history of: Seizures HEENT: History of: Eye Problem (Macular Degeneration) Endocrine: History of: Thyroid Disorder (HYPO) Genitourinary: History of: Recurring Urinary Tract Infections Hematology: History of: Anemia - Surgical History Reproductive Surgeries: Surgical HX of;: Breast Surgery (right mastectomy), Hysterectomy - Family History Family History: Reports;: Family Diabetes (Son and siblings), Family Hypertension - Social History Smoking Status: Former smoker Frequency of Alcohol Use: None Type of Drug Use: None 12 point system: reviewed and no additional remarkable complaints except as stated - Constitutional Constitutional: Present: as per HPI - EENT Eyes: Present: as per HPI Ears: Present: as per HPI Nose, mouth and throat: Present: as per HPI - Cardiovascular Cardiovascular: Present: as per HPI - Respiratory Respiratory: Present: as per HPI - Gastrointestinal Gastrointestinal: Present: as per HPI, diarrhea, nausea - Genitourinary Genitourinary: Present: as per HPI - Musculoskeletal Musculoskeletal: Present: as per HPI - Neurological Neurological: Present: as per HPI - Psychiatric Psychiatric: Present: as per HPI - Endocrine Endocrine: Present: as per HPI - Hematologic/Lymphatic Hematologic/Lymphatic: Present: as per HPI Exam - Constitutional Vitals: Period Temp Pulse Resp BP Sys/Goff Pulse Ox Last 24 Hr 97.0 F-99.9 F 67-90 16-20 100-146/42-81 95-99 General appearance: normal weight, no acute distress - Head Head exam: Present: normal inspection, normocephalic - Eye Eye exam: Present: other (Lids and conjunctivae are unremarkable). Absent: scleral icterus - ENT ENT exam: Present: normal exam, normal oropharynx - Neck Neck exam: Present: normal inspection - Respiratory Respiratory exam: Present: clear to auscultation bilaterally. Absent: rales, rhonchi, wheezes - Cardiovascular Cardiovascular exam: Present: regular rate and rhythm. Absent: diastolic murmur , JVD, systolic murmur - GI/Abdominal GI/Abdominal exam: Present: normal bowel sounds, soft. Absent: ascites, distended, mass, organomegaly, tenderness - Extremities Exam Extremities exam: Present: normal inspection, full ROM - Back Exam Back exam: Present: normal inspection - Neurological Exam Neurological exam: Present: alert, oriented X3 - Psychiatric Psychiatric exam: Present: normal affect, normal mood - Skin Skin exam: Present: normal color, warm, dry Results - Labs CBC & BMP: 04/30/17 05:24 04/30/17 05:24 Lab Results: I have reviewed the past 24 hour labs <Ryan Bahena - Last Filed: 04/30/17 20:42> History of Present Illness Chief complaint: 3030 History of present illness: Ms. Kwon is a 86 year old female Exam - Constitutional Vitals: Period Temp Pulse Resp BP Sys/Goff Pulse Ox Last 24 Hr 96.6 F-99.9 F 62-80 16-20 97-114/43-57 94-98 Results - Labs CBC & BMP: 04/30/17 05:24 04/30/17 05:24
--- NOTE | 2017-04-30 11:27 | Hospitalist Progress Note ---
Assessment and Plan (1) Anemia Status: Acute Assessment and plan: Her hematocrit and hemoglobin were 43.0 and 14.6 yesterday. They are 31.2 and 10.7 today. We will continue to monitor her CBC closely. Current Visit: Yes Qualifiers: Iron deficiency anemia type: unspecified iron deficiency (2) Diarrhea Status: Acute Assessment and plan: Diarrhea has improved. She has been seen in consultation by gastroenterology. Current Visit: Yes (3) Chronic anticoagulation Status: Acute Assessment and plan: She has been on chronic apixaban for atrial fibrillation. The apixaban was stopped due to her gastrointestinal bleeding. Current Visit: Yes (4) Heme positive stool Status: Acute Assessment and plan: He been seen in consultation by gastroenterology. They are to perform an EGD tomorrow. Presumably a colonoscopy will follow later. Current Visit: Yes Hospitalist: Subjective Interval history: She is doing better today. She is experiencing less diarrhea and is resting comfortably. She has been seen in consultation by gastroenterology who plans in EGD tomorrow morning. Exam - Constitutional Vitals: Period Temp Pulse Resp BP Sys/Goff Pulse Ox Last 24 Hr 97.0 F-99.9 F 67-90 16-20 100-146/42-81 95-99 General appearance: no acute distress - Head Head exam: Present: normal inspection - Neck Neck exam: Present: normal inspection - Respiratory Respiratory exam: Present: clear to auscultation bilaterally - Cardiovascular Cardiovascular exam: Present: regular rate and rhythm - GI/Abdominal GI/Abdominal exam: Present: normal bowel sounds, soft, other (Nontender with no palpable masses or hepatosplenomegaly.) - Extremities Exam Extremities exam: Present: normal inspection - Skin Skin exam: Present: normal color, warm, intact Results - Labs CBC & BMP: 04/30/17 05:24 04/30/17 05:24
--- NOTE | 2017-04-30 12:54 | Pain Management Consult Note ---
Assessment and Plan (1) Fracture of thoracic vertebra, compression Problem details: 2-3 week history of back pain with an acute T11 fracture Status: Acute Assessment and plan: 04/30/2017. The patient reports continued thoracic pain in the low thoracic area. This is been ongoing for the past several weeks. Is gotten worse with time. Her ability to perform perform activities of daily living are dramatically reduced. She was scheduled yesterday for kyphoplasty in the clinic. This was put off due to ER visit and admission. GI workup is under going as well as workup for other medical problems. She has been holding her blood thinner for several days before the procedure procedure that was scheduled for yesterday. At some point when stabilized from a medical point of view will consider proceeding with a kyphoplasty possibly during this admission and possibly later this week. After intervention for pain she will likely need rehab bed and gradual mobilization and strengthening. Y Current Visit: Yes Qualifiers: Encounter type: initial encounter Fracture type: closed Qualified Code(s) : S22.000A - Wedge compression fracture of unspecified thoracic vertebra, initial encounter for closed fracture History of Present Illness Chief complaint: Back pain History of present illness: Ms. Kwon is a 86 year old female who is well-known to me and has a 2-3 week history of increasing back pain in the mid back. She had been found to have a acute fracture of T11 and was scheduled for kyphoplasty yesterday in the clinic. The pain is a sharp stabbing throbbing pain worse with movement. Some abdominal pain. Most the pain is centered in the mid back. She states it feels like the previous compression fractures that she has experienced. Home Medications Medication Instructions Recorded Confirmed Type Calcium Carbonate/Vitamin D3 1 each PO DAILY 10/17/16 04/29/17 History [Caltrate 600 Plus D3 Tablet] Apixaban [Eliquis] 2.5 mg PO BID 02/22/17 04/29/17 History Cyanocobalamin (Vitamin B-12) 1,000 mcg IJ Q30D 02/22/17 04/29/17 History [Cyanocobalamin Injection] Lactobacillus Combo No.6 1 each PO DAILY 02/22/17 04/29/17 History [Probiotic Complex] Aspirin EC Tab 81 mg PO DAILY #30 tablet 02/23/17 04/29/17 Rx Levothyroxine Tab [Synthroid Tab] 100 mcg PO DAILY 03/12/17 04/29/17 History amLODIPine [Norvasc] 5 mg PO DAILY tablet 03/15/17 04/29/17 Rx Cranberry Fruit [Cranberry Chew 500 mg PO DAILY 04/29/17 04/29/17 History Tab] Ferrous Sulfate [Slow Release Iron] 500 mg PO QAM 04/29/17 04/29/17 History Hydrocodone/Acetaminophen [[place] 0 each PO Q8H PRN 04/29/17 04/29/17 History 10-325 Tablet] Polyethylene Glycol Powder 17 gm PO DAILY PRN 04/29/17 04/29/17 History [Miralax] fentaNYL 12 MCG/HR PATCH 1 patch TRANSDERM Q3DAY 04/29/17 04/29/17 History [Duragesic 12 Patch] Allergies Allergy/AdvReac Type Severity Reaction Status Date / Time codeine Allergy Unknown/Unable Verified 03/04/17 23:59 to obtain Medical,Surgical,& Family Hx - Medical History Cardio: History of: Cardiac Dysrhythmia (afib), Hypertension, Cardiovascular Problems (a-fib) Neurology: No history of: Seizures HEENT: History of: Eye Problem (Macular Degeneration) Endocrine: History of: Thyroid Disorder (HYPO) Genitourinary: History of: Recurring Urinary Tract Infections Hematology: History of: Anemia - Surgical History Reproductive Surgeries: Surgical HX of;: Breast Surgery (right mastectomy), Hysterectomy - Family History Family History: Reports;: Family Diabetes (Son and siblings), Family Hypertension - Social History Smoking Status: Former smoker Frequency of Alcohol Use: None Type of Drug Use: None - Constitutional Constitutional: Present: daytime sleepiness, fatigue, lethargy, malaise - Cardiovascular Cardiovascular: Present: dyspnea on exertion - Gastrointestinal Gastrointestinal: Present: abdominal pain, constipation - Musculoskeletal Musculoskeletal: Present: arthralgias, back pain, joint swelling - Neurological Neurological: Present: paresthesias Exam - Constitutional Vitals: Period Temp Pulse Resp BP Sys/Goff Pulse Ox Last 24 Hr 97.0 F-99.9 F 62-90 16-20 97-146/42-81 95-99 General appearance: normal weight, mild distress - Head Head exam: Present: normocephalic - Respiratory Respiratory exam: Present: rhonchi - Cardiovascular Cardiovascular exam: Present: irregular rhythm - GI/Abdominal GI/Abdominal exam: Present: soft - Back Exam Back exam: Present: vertebral tenderness - Neurological Exam Neurological exam: Present: alert, oriented X3 Results - Labs CBC & BMP: 04/30/17 05:24 04/30/17 05:24
--- NOTE | 2017-04-30 13:27 | EKG Report ---
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
[2017-04-30] MEDS: SODIUM CHLORIDE 0.9% 1,000 ML IV SCH ×3 (16:38→21:36)
[2017-05-01] MEDS: metroNIDAZOLE INJ 500 MG in PREMIX 1 EACH IV SCH ×4 (00:18→23:45)
[2017-05-01 06:47] LABS: Basophils % 0.3 % (0.0-0.8); Eosinophils # 0.1 10*3/uL (0.0-0.87); Eosinophils % 1.2 % (0.00-10.9); Hematocrit 32.1 VOL% (35.7-47.0); Hemoglobin 10.7 GM/DL (12.0-16.0); Immature Granulocytes % 0.6 %; Immature Granulocytes Absolute 0.06 #; Lymphocytes # 1.1 10*3/uL (1.4-4.0); Lymphocytes % 10.9 % (21.3-54.2); Mean Corpuscular HGB Conc 33.3 GM/DL (32-36); Mean Corpuscular Hemoglobin 33 PG (27-34); Mean Corpuscular Volume 98.2 FL (87-102); Mean Platelet Volume 10.5 FL (9.6-12.0); Monocytes # 0.6 10*3/uL (0.11-0.8); Monocytes % 5.4 % (1.7-12.7); Neutrophils # 8.5 10*3/uL (1.4-7.4); Neutrophils % 81.6 % (38.7-73.9); Platelet Count 175 T/CUMM (130-400); Red Blood Count 3.27 MC/CUMM (3.8-5.5); Red Cell Distribution Width 14.2 % (9.3-17.3); White Blood Count 10.4 T/CUMM (4-12)
[2017-05-01 07:15] LABS: Calcium 8.1 MG/DL (8.5-10.1); Osmolality,Calculated 283.1 MOS/KG (273-304); Potassium 4.5 MMOL/L (3.5-5.1)
[2017-05-01] MEDS ORDERED: LEVOFLOXACIN INJ 250 MG in PREMIX 1 EACH IV SCH (09:00)
--- NOTE | 2017-05-01 09:00 | Hospitalist Progress Note ---
Assessment and Plan (1) Anemia Status: Acute Assessment and plan: Her hematocrit and hemoglobin were stable at 32.1 and 10.7 respectively today. Current Visit: Yes Qualifiers: Iron deficiency anemia type: unspecified iron deficiency (2) Diarrhea Status: Acute Assessment and plan: Diarrhea has improved. She has reportedly scheduled to undergo an EGD today. Current Visit: Yes (3) Chronic anticoagulation Status: Acute Assessment and plan: She has been on chronic apixaban for atrial fibrillation. The apixaban was stopped due to her gastrointestinal bleeding. Current Visit: Yes (4) Heme positive stool Status: Acute Assessment and plan: She has not reported any blood in her stool. Current Visit: Yes (5) Weight loss Status: Acute Assessment and plan: She is not aware of how much weight she has lost, but states that her close no longer fit her. I will perform a CT scan of the abdomen and pelvis. Current Visit: Yes Hospitalist: Subjective Interval history: Patient was seen yesterday in consultation by Dr. Mosquera of the pain clinic. He plans to perform a thoracic kyphoplasty when patient is stable. According to the most recent note from gastroenterology, she is supposed to undergo an EGD today. Laboratory testing demonstrates that her renal function has improved with BUN and creatinine of 16 and 1.1 respectively today. Her hematocrit and hemoglobin remained stable at 32.1 and 10.7 respectively today. She reports that she has lost an unknown amount of weight in the several months prior to this hospitalization. Exam - Constitutional Vitals: Period Temp Pulse Resp BP Sys/Goff Pulse Ox Last 24 Hr 96.6 F-98.6 F 62-80 18-20 97-136/44-66 93-98 General appearance: no acute distress - Head Head exam: Present: normal inspection - Neck Neck exam: Present: normal inspection - Respiratory Respiratory exam: Present: clear to auscultation bilaterally - Cardiovascular Cardiovascular exam: Present: regular rate and rhythm - GI/Abdominal GI/Abdominal exam: Present: normal bowel sounds, soft, other (Nontender with no palpable masses or hepatosplenomegaly.) - Extremities Exam Extremities exam: Present: normal inspection - Neurological Exam Neurological exam: Present: alert, oriented X3 - Skin Skin exam: Present: normal color, warm, intact Results - Labs CBC & BMP: 05/01/17 06:18 05/01/17 06:18
[2017-05-01] MEDS: amLODIPine 5 MG TABLET PO SCH ×2 (09:06→12:20)
[2017-05-01] MEDS: LEVOTHYROXINE 100 MCG TABLET PO SCH ×2 (09:06→12:20)
[2017-05-01] MEDS: PANTOPRAZOLE 40 MG TABLET PO SCH ×2 (09:06→12:20)
--- NOTE | 2017-05-01 10:18 | CT Report ---
CT abdomen pelvis Indication: Weight loss, gastrointestinal hemorrhage Comparison: None available Technique: Axial CT imaging of the abdomen and pelvis is performed without contrast. Findings: Cardiac and lung bases are within normal limits. A large hiatal hernia is present. Small bilateral pleural effusions are seen. CT abdomen: The liver spleen pancreas and adrenal glands are normal in size and density. No evidence of focal lesion is demonstrated in these solid organs. Kidneys are normal in size and density. No evidence of hydronephrosis or nephrolithiasis is seen. Multiple diverticula are present in the colon. Small amount of stranding is present adjacent to the descending colon posteriorly. Bowel caliber is normal and no wall thickening or adjacent inflammatory change is seen. No evidence of free fluid or free air is present. Large amount aortic calcifications present without evidence of aneurysm. CT pelvis: Multiple diverticula are present in the colon most prominent in the sigmoid colon. Remaining pelvic bowel and bladder appear within normal limits. The uterus and ovaries have been removed. Impression: Diverticulosis with a small amount of stranding, may indicate mild diverticulitis. This CT exam was performed using one or more the following dose reduction techniques: Automated exposure control, adjustment of the MA and/or KV according to patient size, or use of iterative reconstruction technique. PROCEDURE INTERPRETED AT [facility] DEPARTMENT OF RADIOLOGY Final Report Signed by: Dr. Dayron Flores
[2017-05-01] MEDS ORDERED: LIDOCAINE 2% 5 ML VIAL ONE (10:47)
[2017-05-01] MEDS ORDERED: PROPOFOL 200 MG/20 ML VIAL IV ONE (10:47)
--- NOTE | 2017-05-01 10:48 | History and Physical Update ---
History and Physical Update - Physical Exam Mental Status: alert and oriented Heart: regular rate and rhythm Lung: clear to auscultation Abdomen: within normal limits Vitals: within normal limits
--- NOTE | 2017-05-01 10:58 | Operative Note ---
Date of procedure: 05/01/17 Pre-op diagnosis: Occult positive stools Procedure: EGD 86-year-old female on chronic anticoagulation for atrial fibrillation admitted with occult positive stools and reported diarrhea which has resolved. She is now for EGD to further evaluate for sources of occult positive stools on a chronic anticoagulation. Informed consent was obtained from her guardian She was sedated with general anesthesia Patient placed in left lateral decubitus position the Olympus flexible video upper endoscope was inserted into the oral cavity under direct vision the esophagus was intubated. Findings: Esophagus-normal proximal mid esophageal mucosa distal esophagus with moderate hiatal hernia. A distal esophageal stricture is present but no esophagitis Copeland's or varices were identified. Stomach-normal insufflation normal mucosa to direct retroflexed views of the body, fundus, cardia and antrum of the stomach. Pylorus-normal Duodenum-normal for the bulb and duodenum to the proximal jejunum. No AVMs were seen no blood was seen. The procedure terminated placed our procedure well she is discharged recovery in good condition. Postop diagnosis: 1. Gastroesophageal reflux disease-continue acid suppressive therapy and antireflux precautions 2. Esophageal stricture-appears clinically asymptomatic dilated if symptoms develop after her anticoagulants of been held for 5 days minimum. 3. Occult positive stools no definitive findings on EGD to explain this given her age and dementia I would not recommend further invasive GI evaluation of the colon unless active bleeding develops. Anesthesia: MAC Surgeon / Physician: Ryan Bahena Estimated blood loss: none Specimens: none sent Condition: stable Disposition: post procedure unit Results - Labs CBC & BMP: 05/01/17 06:18 05/01/17 06:18 Discharge Plan - Discharge Medications No Action Calcium Carbonate/Vitamin D3 [Caltrate 600 Plus D3 Tablet] 1 each PO DAILY Apixaban [Eliquis] 2.5 mg PO BID Lactobacillus Combo No.6 [Probiotic Complex] 1 each PO DAILY Aspirin EC Tab 81 mg PO DAILY #30 tablet Levothyroxine Tab [Synthroid Tab] 100 mcg PO DAILY amLODIPine [Norvasc] 5 mg PO DAILY tablet Cranberry Fruit [Cranberry Chew Tab] 500 mg PO DAILY Ferrous Sulfate [Slow Release Iron] 500 mg PO QAM Cyanocobalamin (Vitamin B-12) [Cyanocobalamin Injection] 1,000 mcg IJ Q30D Hydrocodone/Acetaminophen [[place] 10-325 Tablet] 0 each PO Q8H PRN PRN Reason: Pain Polyethylene Glycol Powder [Miralax] 17 gm PO DAILY PRN PRN Reason: Constipation fentaNYL 12 MCG/HR PATCH [Duragesic 12 Patch] 1 patch TRANSDERM Q3DAY - Follow Up or Referral - Forms/Instructions
--- NOTE | 2017-05-01 11:06 | Anesthesia Post-Op ---
Anesthesia Post OP - Post Ansesthetic Evaluation Patient seen in post op: Yes Resp: within normal limits CV: within normal limits Mental: within normal limits Temp: within normal limits [id number]: within normal limits Nausea and Vomiting: within normal limits Pain: within normal limits
--- NOTE | 2017-05-01 12:56 | Pain Management Progress Note ---
Assessment and Plan (1) Fracture of thoracic vertebra, compression Problem details: 2-3 week history of back pain with an acute T11 fracture Status: Acute Assessment and plan: 05/01/2017. Patient still with significant back pain with any movement. Activities of daily living dramatically reduce with her back pain. She has an acute T11 fracture. Due to the severity of her symptomatology she is a candidate for kyphoplasty. GI workup in progress. If medically stable we will plan on kyphoplasty Saturday, 03 May 2017 in the OR. n 04/30/2017. The patient reports continued thoracic pain in the low thoracic area. This is been ongoing for the past several weeks. Is gotten worse with time. Her ability to perform perform activities of daily living are dramatically reduced. She was scheduled yesterday for kyphoplasty in the clinic. This was put off due to ER visit and admission. GI workup is under going as well as workup for other medical problems. She has been holding her blood thinner for several days before the procedure procedure that was scheduled for yesterday. At some point when stabilized from a medical point of view will consider proceeding with a kyphoplasty possibly during this admission and possibly later this week. After intervention for pain she will likely need rehab bed and gradual mobilization and strengthening. Y Current Visit: Yes Qualifiers: Encounter type: initial encounter Fracture type: closed Qualified Code(s) : S22.000A - Wedge compression fracture of unspecified thoracic vertebra, initial encounter for closed fracture Pain - Subjective Interval history: Still with significant mid back pain with any movement Exam - Constitutional Vitals: Period Temp Pulse Resp BP Sys/Goff Pulse Ox Last 24 Hr 96.6 F-98.8 F 59-80 16-20 107-144/46-069 93-99 - Back Exam Back exam: Present: vertebral tenderness - Neurological Exam Neurological exam: Present: alert, oriented X3 Results - Labs CBC & BMP: 05/01/17 06:18 05/01/17 06:18
--- NOTE | 2017-05-01 13:01 | Physician Query Form ---
CLICK EDIT DOCUMENT TO SELECT QUERY ANSWER --> OK --> SIGN Adriana Hilliard RN Clinical [employer] W) [phone] (f) [phone] [email or web address] PROVIDERS: Make your selection(s) from the choices in EACH section by typing an "x" and enter comments in the comment section. Please use your independent medical judgment in providing your response. This request does not imply that any particular answer is desired or expected. CLINICAL INDICATORS: (Providers should not edit this section) Based on lab results of creatinine on admission of 2.20 with a GFR of 18 and decreased to 1.10. Pt. treated with IV fluids of Normal Saline. Clarify which of the following most accurately represents the patient's renal status: ( x) Acute kidney injury (non-traumatic) ( ) Acute renal failure ( ) Acute renal failure with underlying Chronic Kidney Disease (CKD) - please provide stage below ( ) CKD - please provide stage below ( ) Other, please specify: ( ) Clinically unable to determine Chronic Kidney Disease Stages Source: National Kidney Disease Foundation ( ) Stage I (eGFR > or = 90) ( x) Stage II (eGFR 60 - 89) ( ) Stage III (eGFR 30 - 59) ( ) Stage IV (eGFR 15 - 29) ( ) Stage V (eGFR < 15 or dialysis) COMMENTS: PLEASE ALSO DOCUMENT RESPONSE IN PROGRESS NOTES AND/OR DISCHARGE SUMMARY Use of terms such as suspected, likely, or probable (associated with a specific diagnosis that is being evaluated, monitored, or treated as if it exists) are acceptable and can be restated in the discharge summary if not ruled out. MTDD
[2017-05-01] MEDS: CALCIUM CARBONATE CHEW 500 MG TABLET PO PRN ×2 (17:50→20:28)
[2017-05-01] MEDS: SODIUM CHLORIDE 0.9% 1,000 ML IV SCH ×2 (18:42)
[2017-05-02] MEDS: SODIUM CHLORIDE 0.9% 1,000 ML IV SCH ×2 (03:30→16:21)
[2017-05-02 06:33] LABS: Basophils % 0.4 % (0.0-0.8); Eosinophils # 0.2 10*3/uL (0.0-0.87); Eosinophils % 2.8 % (0.00-10.9); Hematocrit 31.1 VOL% (35.7-47.0); Hemoglobin 10.2 GM/DL (12.0-16.0); Immature Granulocytes % 0.3 %; Immature Granulocytes Absolute 0.02 #; Lymphocytes # 1.2 10*3/uL (1.4-4.0); Lymphocytes % 17.2 % (21.3-54.2); Mean Corpuscular HGB Conc 32.8 GM/DL (32-36); Mean Corpuscular Hemoglobin 32 PG (27-34); Mean Corpuscular Volume 98.4 FL (87-102); Mean Platelet Volume 11.4 FL (9.6-12.0); Monocytes # 0.5 10*3/uL (0.11-0.8); Monocytes % 6.7 % (1.7-12.7); Neutrophils # 4.9 10*3/uL (1.4-7.4); Neutrophils % 72.6 % (38.7-73.9); Red Blood Count 3.16 MC/CUMM (3.8-5.5); White Blood Count 6.8 T/CUMM (4-12)
[2017-05-02 06:43] LABS: Platelet Count 137 T/CUMM (130-400)
[2017-05-02 06:55] LABS: Burr Cells Slight; Giant Platelets Few; Hypochromasia 1+; Ovalocytes Slight; Platelet Estimate Normal
[2017-05-02 07:12] LABS: Calcium 7.7 MG/DL (8.5-10.1); Osmolality,Calculated 280.1 MOS/KG (273-304)
--- NOTE | 2017-05-02 07:54 | Hospitalist Progress Note ---
Assessment and Plan (1) Anemia Status: Acute Assessment and plan: Her hematocrit and hemoglobin were stable at 31.1 and 10.2 respectively today. Current Visit: Yes Qualifiers: Iron deficiency anemia type: unspecified iron deficiency (2) Diarrhea Status: Acute Assessment and plan: Resolved. Current Visit: Yes (3) Chronic anticoagulation Status: Acute Assessment and plan: She has been on chronic apixaban for atrial fibrillation. The apixaban was stopped due to her gastrointestinal bleeding. She will temporarily remain off the apixaban until completion of the kyphoplasty. Current Visit: Yes (4) Heme positive stool Status: Acute Assessment and plan: She has not reported any blood in her stool. Current Visit: Yes (5) Weight loss Status: Acute Assessment and plan: She is not aware of how much weight she has lost, but states that her clothes no longer fit her. CT scan of the abdomen and pelvis demonstrated no significant abnormalities. Chest x-ray demonstrates no significant abnormalities. EGD demonstrated no significant abnormalities. Current Visit: Yes (6) Fracture of vertebra at T3-T4 level of thoracic spine Status: Acute Assessment and plan: She is scheduled to undergo a kyphoplasty with Dr. Mosquera tomorrow afternoon. She should be able to proceed with this procedure at this time. Current Visit: Yes (7) Renal failure Status: Acute Assessment and plan: Her BUN and creatinine today are 9 and 0.8 respectively. 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 Her acute renal failure is resolved. Current Visit: Yes Qualifiers: Renal failure chronicity: acute on chronic Chronic kidney disease stage: stage 2 (mild) Hospitalist: Subjective Interval history: Patient underwent an EGD yesterday demonstrating gastroesophageal reflux disease and a distal esophageal stricture. Gastroenterology did not perform dilation of the stricture because they felt that not necessary to do so. They recommended no further GI evaluation the colon at this time. The CT scan of the abdomen and pelvis demonstrated diverticulosis with a small amount of stranding possibly compatible with diverticulitis. She feels somewhat better at the present time. She is tolerating eating without difficulty. She is most concerned about her weight loss and her back pain. Exam - Constitutional Vitals: Period Temp Pulse Resp BP Sys/Goff Pulse Ox Last 24 Hr 97.0 F-98.8 F 59-71 16-20 107-144/46-069 92-99 General appearance: no acute distress - Head Head exam: Present: normal inspection - Neck Neck exam: Present: normal inspection - Respiratory Respiratory exam: Present: clear to auscultation bilaterally - Cardiovascular Cardiovascular exam: Present: regular rate and rhythm - GI/Abdominal GI/Abdominal exam: Present: normal bowel sounds, soft, other (Nontender with no palpable masses or hepatosplenomegaly.) - Extremities Exam Extremities exam: Present: normal inspection - Back Exam Back exam: Present: normal inspection - Neurological Exam Neurological exam: Present: alert, oriented X3 - Skin Skin exam: Present: normal color, warm, intact Results - Labs CBC & BMP: 05/02/17 05:48 05/02/17 05:48
[2017-05-02] MEDS: metroNIDAZOLE INJ 500 MG in PREMIX 1 EACH IV SCH ×2 (08:25→16:20)
[2017-05-02] MEDS: amLODIPine 5 MG TABLET PO SCH (08:25)
[2017-05-02] MEDS: LEVOTHYROXINE 100 MCG TABLET PO SCH (08:25)
[2017-05-02] MEDS: PANTOPRAZOLE 40 MG TABLET PO SCH (08:25)
--- NOTE | 2017-05-02 10:30 | Gastrointestinal Progress Note ---
<Camille Turcios D - Last Filed: 05/02/17 10:27> Assessment and Plan (1) Diarrhea Status: Acute Assessment and plan: 05/02-No reports of diarrhea at this time. No overt bleeding reported. Plan and addendum to follow by Dr Bahena. 04/30-3 day history of multiple diarrhea stools with questionable reports of hematochezia. On Eliquis therapy for history of atrial fibrillation. No abdominal pain or other associated symptoms other than some mild nausea. Stool studies are negative thus far. Continue to monitor present time. No prior history of colonoscopy. Plan an addendum to followed by Dr. Bahena. Current Visit: Yes (2) Heme positive stool Status: Acute Assessment and plan: 05/02- 06/18 w/o overt bleeding. EGD findings noted. No plans for colonoscopy at this time. Plan and addendum to follow by Dr Bahena. 04/30-reports of heme positive stools in the emergency room. Drop in H&H noted from admission to today. No overt bleeding reported. On Eliquis therapy currently being held. Also noted with a history of iron therapy. Continue to monitor H&H. Plan for tentative EGD tomorrow to further evaluate. Plan an addendum to followed by Dr. Bahena. Current Visit: Yes Gastroenterology - PN: Subj Interval history: CC: Occult positive stools Pt is seen awake and alert sitting up in bed. States she is feeling about the same today. She is tolerating her diet well with a good appetite noted. EGD noted with findings of GERD and stricture w/o dilation due to her anticoagulant however pt is not complaining of dysphagia. No recommendations for colonoscopy. HH is holding at . Abdomen is soft, nontender. ROS: Denies SOB or chest pain Exam (Progress Note) - Constitutional Vitals: Period Temp Pulse Resp BP Sys/Goff Pulse Ox Last 24 Hr 97.8 F-98.8 F 59-70 16-20 107-143/46-61 92-99 General appearance: normal weight, no acute distress - Head Head exam: Present: normal inspection, normocephalic - Eye Eye exam: Present: other (lids and conjunctiva unremarkable). Absent: scleral icterus - ENT ENT exam: Present: normal exam - Neck Neck exam: Present: normal inspection - Respiratory Respiratory exam: Present: clear to auscultation bilaterally. Absent: rales, rhonchi, wheezes - Cardiovascular Cardiovascular exam: Present: regular rate and rhythm. Absent: diastolic murmur , JVD, systolic murmur - GI/Abdominal GI/Abdominal exam: Present: normal bowel sounds, soft. Absent: ascites, distended, mass, organomegaly, tenderness - Extremities Exam Extremities exam: Present: normal inspection, full ROM - Back Exam Back exam: Present: normal inspection - Neurological Exam Neurological exam: Present: alert, oriented X3 - Psychiatric Psychiatric exam: Present: normal affect, normal mood - Skin Skin exam: Present: normal color, warm, dry Results - Labs CBC & BMP: 05/02/17 05:48 05/02/17 05:48 Lab Results: I have reviewed the past 24 hour labs <Ryan Bahena - Last Filed: 05/02/17 10:54> Exam (Progress Note) - Constitutional Vitals: Period Temp Pulse Resp BP Sys/Goff Pulse Ox Last 24 Hr 97.8 F-98.8 F 59-70 16-20 107-143/46-61 92-99 Results - Labs CBC & BMP: 05/02/17 05:48 05/02/17 05:48
[2017-05-02] MEDS: LEVOFLOXACIN INJ 500 MG in PREMIX 1 EACH IV SCH (11:05)
[2017-05-02] MEDS ORDERED: ceFAZolin 2,000 MG in PREMIX 1 EACH IV ONE (11:26)
--- NOTE | 2017-05-02 11:26 | Pain Management Progress Note ---
Assessment and Plan (1) Fracture of thoracic vertebra, compression Problem details: 2-3 week history of back pain with an acute T11 fracture Status: Acute Assessment and plan: 05/02/2017. The patient complains of pain in the mid back that radiates to the lower back, throbbing aching discomfort. The pain is much worse with any movement including trying to transition between sitting and standing position. She has trouble getting out of bed. She has trouble with activities of daily living. Given the severity of her symptoms and lack of improvement with conservative care she is now candidate for kyphoplasty of T11. We will plan this in operating room with MAC anesthesia tomorrow morning. After this is accomplished she should be able to be considered for discharge planning including the possibility of swing bed rehab bed. y 05/01/2017. Patient still with significant back pain with any movement. Activities of daily living dramatically reduce with her back pain. She has an acute T11 fracture. Due to the severity of her symptomatology she is a candidate for kyphoplasty. GI workup in progress. If medically stable we will plan on kyphoplasty Saturday, 03 May 2017 in the OR. n 04/30/2017. The patient reports continued thoracic pain in the low thoracic area. This is been ongoing for the past several weeks. Is gotten worse with time. Her ability to perform perform activities of daily living are dramatically reduced. She was scheduled yesterday for kyphoplasty in the clinic. This was put off due to ER visit and admission. GI workup is under going as well as workup for other medical problems. She has been holding her blood thinner for several days before the procedure procedure that was scheduled for yesterday. At some point when stabilized from a medical point of view will consider proceeding with a kyphoplasty possibly during this admission and possibly later this week. After intervention for pain she will likely need rehab bed and gradual mobilization and strengthening. Y Current Visit: Yes Qualifiers: Encounter type: initial encounter Fracture type: closed Qualified Code(s) : S22.000A - Wedge compression fracture of unspecified thoracic vertebra, initial encounter for closed fracture Pain - Subjective Interval history: Low mid back pain with any movement. The pain is a throbbing aching discomfort. Exam - Constitutional Vitals: Period Temp Pulse Resp BP Sys/Goff Pulse Ox Last 24 Hr 97.8 F-98.7 F 59-70 16-20 108-143/47-61 92-98 - Back Exam Back exam: Present: vertebral tenderness - Neurological Exam Neurological exam: Present: alert, oriented X3, abnormal gait Results - Labs CBC & BMP: 05/02/17 05:48 05/02/17 05:48
[2017-05-02] MEDS: CALCIUM CARBONATE CHEW 500 MG TABLET PO PRN (21:29)
[2017-05-03] MEDS: metroNIDAZOLE INJ 500 MG in PREMIX 1 EACH IV SCH ×4 (00:16→23:38)
[2017-05-03] MEDS: SODIUM CHLORIDE 0.9% 1,000 ML IV SCH ×4 (00:16→20:29)
[2017-05-03 05:29] LABS: Basophils % 0.3 % (0.0-0.8); Eosinophils # 0.2 10*3/uL (0.0-0.87); Eosinophils % 3.7 % (0.00-10.9); Hemoglobin 10.8 GM/DL (12.0-16.0); Immature Granulocytes % 0.5 %; Immature Granulocytes Absolute 0.03 #; Lymphocytes # 1.4 10*3/uL (1.4-4.0); Lymphocytes % 23.5 % (21.3-54.2); Mean Corpuscular HGB Conc 33.8 GM/DL (32-36); Mean Corpuscular Hemoglobin 33 PG (27-34); Mean Corpuscular Volume 96.4 FL (87-102); Mean Platelet Volume 10.4 FL (9.6-12.0); Monocytes # 0.5 10*3/uL (0.11-0.8); Monocytes % 7.9 % (1.7-12.7); Neutrophils # 3.8 10*3/uL (1.4-7.4); Neutrophils % 64.1 % (38.7-73.9); Platelet Count 177 T/CUMM (130-400); Red Blood Count 3.32 MC/CUMM (3.8-5.5); Red Cell Distribution Width 13.8 % (9.3-17.3)
[2017-05-03 05:52] LABS: Calcium 7.7 MG/DL (8.5-10.1); Osmolality,Calculated 278.1 MOS/KG (273-304); Potassium 3.5 MMOL/L (3.5-5.1)
[2017-05-03] MEDS ORDERED: ROPIVACAINE 0.5% 30 ML VIAL ONE (06:57)
[2017-05-03] MEDS ORDERED: TISSUE ADHESIVE 1 EACH APPLICATOR TOP ONE (06:57)
--- NOTE | 2017-05-03 07:51 | Hospitalist Progress Note ---
Assessment and Plan (1) Anemia Status: Acute Assessment and plan: Her hematocrit and hemoglobin were stable at 32.0 and 10.8 respectively today. Current Visit: Yes Qualifiers: Iron deficiency anemia type: unspecified iron deficiency (2) Diarrhea Status: Acute Assessment and plan: Resolved. Current Visit: Yes (3) Chronic anticoagulation Status: Acute Assessment and plan: She has been on chronic apixaban for atrial fibrillation. The apixaban was stopped due to her gastrointestinal bleeding. She will temporarily remain off the apixaban until completion of the kyphoplasty. Current Visit: Yes (4) Heme positive stool Status: Acute Assessment and plan: She has not reported any blood in her stool. Current Visit: Yes (5) Weight loss Status: Acute Assessment and plan: She is not aware of how much weight she has lost, but states that her clothes no longer fit her. CT scan of the abdomen and pelvis demonstrated no significant abnormalities. Chest x-ray demonstrates no significant abnormalities. EGD demonstrated no significant abnormalities. Current Visit: Yes (6) Fracture of vertebra at T3-T4 level of thoracic spine Status: Acute Assessment and plan: She is to undergo kyphoplasty today. Case management has been consulted for placement post discharge and rehabilitation. Current Visit: Yes (7) Renal failure Status: Acute Assessment and plan: Her BUN and creatinine today are 5 and 0.87 respectively. 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 Her acute renal failure is resolved. Current Visit: Yes Qualifiers: Renal failure chronicity: acute on chronic Chronic kidney disease stage: stage 2 (mild) Hospitalist: Subjective Interval history: Patient is doing well. She is to undergo a kyphoplasty today. I will consult case management for placement in a rehabilitation unit post discharge. Exam - Constitutional Vitals: Period Temp Pulse Resp BP Sys/Goff Pulse Ox Last 24 Hr 97.0 F-97.9 F 69-77 18-20 100-159/62-66 96-98 General appearance: no acute distress - Head Head exam: Present: normal inspection - Neck Neck exam: Present: normal inspection - Respiratory Respiratory exam: Present: clear to auscultation bilaterally - Cardiovascular Cardiovascular exam: Present: regular rate and rhythm - GI/Abdominal GI/Abdominal exam: Present: normal bowel sounds, soft, other (Nontender with no palpable masses or hepatosplenomegaly.) - Extremities Exam Extremities exam: Present: normal inspection - Neurological Exam Neurological exam: Present: alert, oriented X3 - Skin Skin exam: Present: normal color, warm, intact Results - Labs CBC & BMP: 05/03/17 04:43 05/03/17 04:43
--- NOTE | 2017-05-03 08:07 | Anesthesia Post-Op ---
Anesthesia Post OP - Post Ansesthetic Evaluation Patient seen in post op: Yes Resp: within normal limits CV: within normal limits Mental: within normal limits Temp: within normal limits [id number]: within normal limits Nausea and Vomiting: within normal limits Pain: within normal limits
[2017-05-03] MEDS ORDERED: SODIUM CHLORIDE 0.9% 250 ML IV ONE (08:12)
[2017-05-03] MEDS ORDERED: KETAMINE 500 MG/10 ML VIAL ONE (08:12)
[2017-05-03] MEDS ORDERED: PROPOFOL 200 MG/20 ML VIAL IV ONE (08:12)
--- NOTE | 2017-05-03 08:18 | Operative Note ---
Date of procedure: 05/03/17 Pre-op diagnosis: Thoracic compression fracture Post-op diagnosis: same Procedure: Preoperative diagnosis: #1 osteoporotic thoracic compression fracture acute, #2 thoracic spondylosis. Postop diagnosis: Same Procedure: Kyphoplasty T11 biopsy Anesthesia: MAC Complications: None Estimated blood loss: Minimal Findings: The patient has severe bone loss. Between the time of her spinal x- rays and today her vertebral collapse of T11 had progressed from 25% collapsed to 75% collapse. History of present illness: The patient is very pleasant 86-year-old female who is been found to have an acute T11 thoracic compression fracture and associated severe symptomology including decreased activities of daily living to the point that she can only get out of bed to go to the restroom but nothing further than that. This is because of the severity of her pain she is a candidate for kyphoplasty. Please note that her compression has progressed from 25% to 75%. Procedure note: The risk benefits and indications of the procedure were explained to the patient, including the option to do nothing all, she understood these and wished to proceed. The patient was placed in the prone position on the operating table, her back was prepped with alcohol ChloraPrep allowed air dry and sterilely draped. All pressure points padded. The T11 vertebral body fracture was identified on fluoroscopy as were the pedicles. Skin was raised above the pedicles using oblique view under fluoroscopy. A stab was made with 11 blade scalpel through each of these skin wheals. Through the stab wounds were advanced the bone trochars. Bone trochars were advanced until struck the posterior aspect of the pedicles bilaterally under fluoroscopy. Using a bone mallet the bone trochars were driven down to the pedicles into the posterior vertebral body bilaterally. At this point I obtain a biopsy to rule out other pathological causes of fractures. A balloon bone tamp was advanced from each side through each bone trocar into the vertebral body and inflated to around 100-150 pounds per square inch. Each side holding 2 -3 cc of contrasted fluid. There is partial hindu of the vertebral body height. Was doing this an city carrier assistant mixed the bone cement. I then deflated balloon bone tamps and remove them. Using the syringe injector system, I injected the bone cement into the vertebral body under continuous lateral fluoroscopy. I injected total of 6 cc of the bone cement into the T11 vertebral body. There is excellent filling throughout the vertebral body. The stylets then were placed back into the bone trochars. Bone trochars removed intact. The wounds were sterilely dressed after surgical glue was placed on the skin wounds. Patient was taken to recovery in satisfactory condition. Anesthesia: MAC Surgeon / Physician: Bud Mosquera Estimated blood loss: minimal Specimens: other (T11 biopsy) Condition: stable Disposition: PACU Results - Labs CBC & BMP: 05/03/17 04:43 05/03/17 04:43 Discharge Plan - Discharge Data Condition at Discharge: Stable - Discharge Medications No Action Calcium Carbonate/Vitamin D3 [Caltrate 600 Plus D3 Tablet] 1 each PO DAILY Apixaban [Eliquis] 2.5 mg PO BID Lactobacillus Combo No.6 [Probiotic Complex] 1 each PO DAILY Aspirin EC Tab 81 mg PO DAILY #30 tablet Levothyroxine Tab [Synthroid Tab] 100 mcg PO DAILY amLODIPine [Norvasc] 5 mg PO DAILY tablet Cranberry Fruit [Cranberry Chew Tab] 500 mg PO DAILY Ferrous Sulfate [Slow Release Iron] 500 mg PO QAM Cyanocobalamin (Vitamin B-12) [Cyanocobalamin Injection] 1,000 mcg IJ Q30D Hydrocodone/Acetaminophen [[place] 10-325 Tablet] 0 each PO Q8H PRN PRN Reason: Pain Polyethylene Glycol Powder [Miralax] 17 gm PO DAILY PRN PRN Reason: Constipation fentaNYL 12 MCG/HR PATCH [Duragesic 12 Patch] 1 patch TRANSDERM Q3DAY - Follow Up or Referral - Forms/Instructions
[2017-05-03] MEDS ORDERED: hydrALAZINE 20 MG/1 ML VIAL ONE (08:37)
[2017-05-03] MEDS ORDERED: hydrALAZINE 20 MG/1 ML VIAL IV ONE (08:42)
[2017-05-03] MEDS: ONDANSETRON 4 MG/2 ML VIAL IV PRN (09:18)
[2017-05-03] MEDS: PANTOPRAZOLE 40 MG TABLET PO SCH (09:23)
[2017-05-03] MEDS: amLODIPine 5 MG TABLET PO SCH (09:23)
[2017-05-03] MEDS: LEVOTHYROXINE 100 MCG TABLET PO SCH (09:23)
[2017-05-03] MEDS: LEVOFLOXACIN INJ 500 MG in PREMIX 1 EACH IV SCH (12:26)
--- NOTE | 2017-05-04 08:22 | Hospitalist Progress Note ---
Assessment and Plan (1) Anemia Status: Acute Assessment and plan: Her hematocrit and hemoglobin were stable at 32.0 and 10.8 respectively today. Current Visit: Yes Qualifiers: Iron deficiency anemia type: unspecified iron deficiency (2) Diarrhea Status: Acute Assessment and plan: Resolved. Current Visit: Yes (3) Chronic anticoagulation Status: Acute Assessment and plan: She has been on chronic apixaban for atrial fibrillation. The apixaban was stopped due to her gastrointestinal bleeding. I will restart her apixaban 2.5 mg p.o. twice daily today. Current Visit: Yes (4) Heme positive stool Status: Acute Assessment and plan: She has not reported any blood in her stool. Current Visit: Yes (5) Weight loss Status: Acute Assessment and plan: She is not aware of how much weight she has lost, but states that her clothes no longer fit her. CT scan of the abdomen and pelvis demonstrated no significant abnormalities. Chest x-ray demonstrates no significant abnormalities. EGD demonstrated no significant abnormalities. Current Visit: Yes (6) Fracture of vertebra at T3-T4 level of thoracic spine Status: Acute Assessment and plan: She is stable status post kyphoplasty of T11 yesterday. She will go to rehabilitation on 05/06/17. In the meantime I will consult physical therapy. Current Visit: Yes (7) Renal failure Status: Acute Assessment and plan: Her BUN and creatinine today are 5 and 0.7 respectively. 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 Her acute renal failure is resolved. Current Visit: Yes Qualifiers: Renal failure chronicity: acute on chronic Chronic kidney disease stage: stage 2 (mild) Hospitalist: Subjective Interval history: Ms. Kwon is stable status post kyphoplasty and biopsy of T11. She is not complaining of severe pain. She is walking in the room without difficulty. Exam - Constitutional Vitals: Period Temp Pulse Resp BP Sys/Goff Pulse Ox Last 24 Hr 96.7 F-98.8 F 71-80 16-20 105-199/46-83 93-100 General appearance: no acute distress - Head Head exam: Present: normal inspection - Neck Neck exam: Present: normal inspection - Respiratory Respiratory exam: Present: clear to auscultation bilaterally - Cardiovascular Cardiovascular exam: Present: regular rate and rhythm - GI/Abdominal GI/Abdominal exam: Present: normal bowel sounds, soft, other (Nontender with no palpable masses or hepatosplenomegaly.) - Extremities Exam Extremities exam: Present: normal inspection - Skin Skin exam: Present: normal color, warm, intact Results - Labs CBC & BMP: 05/03/17 04:43 05/03/17 04:43
[2017-05-04] MEDS: SODIUM CHLORIDE 0.9% 1,000 ML IV SCH (08:40)
[2017-05-04] MEDS: metroNIDAZOLE INJ 500 MG in PREMIX 1 EACH IV SCH ×3 (08:43→23:53)
[2017-05-04] MEDS: PANTOPRAZOLE 40 MG TABLET PO SCH (08:48)
[2017-05-04] MEDS: amLODIPine 5 MG TABLET PO SCH (08:49)
[2017-05-04] MEDS: LEVOTHYROXINE 100 MCG TABLET PO SCH (08:49)
[2017-05-04] MEDS: APIXABAN 2.5 MG TABLET PO SCH ×3 (08:49→20:24)
[2017-05-04] MEDS: LEVOFLOXACIN INJ 500 MG in PREMIX 1 EACH IV SCH (10:10)
--- NOTE | 2017-05-04 12:32 | Event Note ---
Pain improved since kyphoplasty. Agree with discharge planning. Also agree with mobilization and restarting blood thinner. n
[2017-05-04] MEDS: ONDANSETRON 4 MG/2 ML VIAL IV PRN (15:21)
[2017-05-04] MEDS ORDERED: POLYETHYLENE GLYCOL POWDER 17 GM PACK PO PRN (19:24)
[2017-05-04] MEDS: CALCIUM CARBONATE CHEW 500 MG TABLET PO PRN ×2 (20:22→23:53)
[2017-05-05 04:20] LABS: Basophils % 0.5 % (0.0-0.8); Eosinophils # 0.1 10*3/uL (0.0-0.87); Eosinophils % 0.6 % (0.00-10.9); Hematocrit 29.3 VOL% (35.7-47.0); Immature Granulocytes % 1.4 %; Immature Granulocytes Absolute 0.11 #; Lymphocytes # 0.7 10*3/uL (1.4-4.0); Mean Corpuscular HGB Conc 34.1 GM/DL (32-36); Mean Corpuscular Hemoglobin 33 PG (27-34); Mean Corpuscular Volume 97.3 FL (87-102); Mean Platelet Volume 10.3 FL (9.6-12.0); Monocytes % 11.7 % (1.7-12.7); Neutrophils # 6.3 10*3/uL (1.4-7.4); Neutrophils % 76.8 % (38.7-73.9); Platelet Count 175 T/CUMM (130-400); Red Blood Count 3.01 MC/CUMM (3.8-5.5); White Blood Count 8.1 T/CUMM (4-12)
[2017-05-05 05:26] LABS: Calcium 7.5 MG/DL (8.5-10.1); Osmolality,Calculated 287.1 MOS/KG (273-304); Potassium 3.5 MMOL/L (3.5-5.1)
[2017-05-05] MEDS: CALCIUM CARBONATE CHEW 500 MG TABLET PO PRN (05:44)
[2017-05-05] MEDS: LEVOTHYROXINE 100 MCG TABLET PO SCH (08:05)
[2017-05-05] MEDS: amLODIPine 5 MG TABLET PO SCH (08:05)
[2017-05-05] MEDS: metroNIDAZOLE INJ 500 MG in PREMIX 1 EACH IV SCH (08:07)
--- NOTE | 2017-05-05 08:17 | Hospitalist Progress Note ---
Assessment and Plan (1) Anemia Status: Acute Assessment and plan: Her hematocrit and hemoglobin are stable at 29.3 and 10.0 respectively today. Current Visit: Yes Qualifiers: Iron deficiency anemia type: unspecified iron deficiency (2) Diarrhea Status: Acute Assessment and plan: Resolved. Current Visit: Yes (3) Chronic anticoagulation Status: Acute Assessment and plan: She has been on chronic apixaban for atrial fibrillation. The apixaban was stopped due to her gastrointestinal bleeding. I restarted her apixaban 2.5 mg p.o. twice daily yesterday. Current Visit: Yes (4) Heme positive stool Status: Acute Assessment and plan: She has not reported any blood in her stool. Current Visit: Yes (5) Weight loss Status: Acute Assessment and plan: She is not aware of how much weight she has lost, but states that her clothes no longer fit her. CT scan of the abdomen and pelvis demonstrated no significant abnormalities. Chest x-ray demonstrates no significant abnormalities. EGD demonstrated no significant abnormalities. Current Visit: Yes (6) Fracture of vertebra at T3-T4 level of thoracic spine Status: Acute Assessment and plan: She is stable status post kyphoplasty of T11 2 days ago. She will go to rehabilitation on 05/06/17. She has begun walking in the [place] with physical therapy. Current Visit: Yes (7) Renal failure Status: Acute Assessment and plan: Her BUN and creatinine today are 13 and 0.9 respectively. Her calculated GFR is 52 compatible with stage II chronic kidney disease. Her acute renal failure is resolved. Current Visit: Yes Qualifiers: Renal failure chronicity: acute on chronic Chronic kidney disease stage: stage 2 (mild) Hospitalist: Subjective Interval history: Ms. Kwon is stable status post kyphoplasty and biopsy of T11 2 days ago. She is walking in the [place] with assistance. She is not complaining of severe pain. She declines any further intravenous antibiotics. She is to be discharged to rehabilitation tomorrow. Exam - Constitutional Vitals: Period Temp Pulse Resp BP Sys/Goff Pulse Ox Last 24 Hr 97.2 F-98.3 F 62-94 18-28 101-122/49-82 93-97 General appearance: no acute distress - Head Head exam: Present: normal inspection - Neck Neck exam: Present: normal inspection - Respiratory Respiratory exam: Present: clear to auscultation bilaterally - Cardiovascular Cardiovascular exam: Present: regular rate and rhythm - GI/Abdominal GI/Abdominal exam: Present: normal bowel sounds, soft, other (Nontender with no palpable masses or hepatosplenomegaly.) - Extremities Exam Extremities exam: Present: normal inspection - Back Exam Back exam: Present: normal inspection - Neurological Exam Neurological exam: Present: alert, oriented X3 - Skin Skin exam: Present: normal color, warm, intact Results - Labs CBC & BMP: 05/05/17 03:18 05/05/17 03:18
[2017-05-05] MEDS: SODIUM CHLORIDE 0.9% 1,000 ML IV SCH ×4 (08:37→20:48)
[2017-05-05] MEDS: PANTOPRAZOLE 40 MG TABLET PO SCH ×2 (08:38→20:47)
[2017-05-05] MEDS: APIXABAN 2.5 MG TABLET PO SCH ×2 (08:38→20:47)
[2017-05-06] MEDS: PANTOPRAZOLE 40 MG TABLET PO SCH (09:10)
[2017-05-06] MEDS: amLODIPine 5 MG TABLET PO SCH (09:10)
[2017-05-06] MEDS: APIXABAN 2.5 MG TABLET PO SCH (09:10)
[2017-05-06] MEDS: LEVOTHYROXINE 100 MCG TABLET PO SCH (09:11)
[2017-05-06] MEDS: SODIUM CHLORIDE 0.9% 1,000 ML IV SCH ×2 (09:15→14:27)
--- NOTE | 2017-05-06 09:47 | Case Mgmt Physician Query Form ---
TB Signs and Symptoms Screening ([place]) INSTRUCTIONS: To be completed annually on residents/staff with a significant Tuberculin Skin Test (TST) upon admission/hire or a prior significant TST. To be completed on all staff at hire. Please respond to each listed symptom with an (X) in either the "YES" or "NO" box. Do you currently have any of the following symptoms: YES NO ( ) ( x) A cough If yes, is it: ( ) Productive ( ) Non- productive ( ) ( x) Hemoptysis (spitting up blood) ( ) ( x) Chest pains ( ) ( x) Weight Loss ( ) ( x) Fever ( ) ( x) Night Sweats ( ) ( x) Weakness ( ) ( x) Loss of Appetite ( ) ( x) Difficulty Breathing If you answered YES" to any of the above questions, how long have symptoms been present? Comments: DOMINGO
--- NOTE | 2017-05-06 10:49 | Hospitalist Progress Note ---
Hospitalist: Subjective Interval history: Ms. Kwon is stable status post kyphoplasty of T11 compression fracture due to severe osteoporosis on 05/03. She is doing well after the procedure and is able to ambulate, she only has minimal pain. Exam - Constitutional Vitals: Period Temp Pulse Resp BP Sys/Goff Pulse Ox Last 24 Hr 97.1 F-99 F 63-83 16-20 110-163/53-73 94-98 Exam: General: No Acute Distress HEENT: Normocephalic, atraumatic, Extra ocular movements intact Neck: Supple, No JVD Chest: Clear to auscultation B/L CV: S1 + S2 audible without murmur, gallop or rub Abd: soft, NT, Non-distended, BS + Ext: No edema Skin: No purpura, bruising or rash Rheumatologic: No Joint deformities Neurologic: Strength 5/5 all extremities, no gross sensory deficits Results - Labs CBC & BMP: 05/05/17 03:18 05/05/17 03:18 - Impressions Assessment and Plan: T11 compression fracture due to severe osteoporosis Status: Acute Assessment and plan: She is status post T11 kyphoplasty May 03. She is doing well with physical therapy and pain is improved. Current Visit: Yes Paroxysmal atrial fibrillation Status: Chronic Assessment and plan: Continue Eliquis Current Visit: Yes Discharge plan to swing bed to get a PPD and a chest x-ray
--- NOTE | 2017-05-06 11:17 | Pathology Report from [facility] ---
[facility] [place] ACCESSION # : [id number] PATIENT NAME : Gregory Roberts ORDERING DR : IAN DE LOS SANTOS MD CLINICAL HX: Acute T11 fracture POST-OP DX: Same SPECIMEN INFO: T11 biopsy GROSS DESCRIPTION: Received in formalin labeled GREGORY ROBERTS consists of a 1.0 x 0.4 cm aggregate of soft hemorrhagic material, submitted in one cassette. DIAGNOSIS FOR GREGORY ROBERTS: T11 TISSUE, KYPHOPLASTY: Predominately blood and rare fragments of benign bone; no tumor seen. COLLECTED DATE: 05/03/2017 [facility] [place] REPORT DATE: 05/06/2017 ELECTRONICALLY SIGNED BY: Liliana Kaur M.D. 05/06/2017 - 9:30:10 [facility]
[2017-05-06] MEDS ORDERED: TUBERCULIN SKIN TEST 0.1 ML SYRINGE INTRADERM ONE (13:00)
--- NOTE | 2017-05-06 13:41 | XRay Report ---
Single view the chest. Indication: Cough. Comparison: March 12, 2017. The heart is normal in size. There is calcific plaque present within the aortic knob. The lung volumes are normal. Interstitial fibrotic changes are present. There is apical pleural irregularity which is stable. Surgical clips are present in the left neck and right axilla. Surgical hardware in the right proximal humerus. No consolidation, pneumothorax, or pleural effusion. Previous vertebroplasty at the thoracolumbar junction. Impression: Chronic lung changes. No acute abnormality. PROCEDURE INTERPRETED AT [facility] DEPARTMENT OF RADIOLOGY Final Report Signed by: Dr. Brianne Matos
[2017-05-06 14:09] VITALS: BP 132/63
--- NOTE | 2017-05-06 14:29 | Discharge Summary ---
Hospital Course - Hospital Course Hospital Course: 86-year-old white female who was admitted with diarrhea from the emergency room. She also had heme positive stool. She was admitted to the hospice service and GI were consulted. Her diarrhea improved. For her heme positive stool GI performed an EGD which revealed gastroesophageal reflux disease as well as esophageal stricture. She had no further bleeding while on the floor. He developed worsening back pain and was found to have T11 compression fracture. She underwent kyphoplasty with cementing of the T11 compression fracture with subsequent improvement in her pain and symptoms. She was able to ambulate with the help of physical therapy. Her Eliquis was resumed for her paroxysmal atrial fibrillation. On acute renal failure on chronic kidney disease stage II also improved. 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 She is being discharged in improved and stable condition. Total discharge time 35 minutes - Time spent with patient Time with patient DS: Greater than 30 minutes Diagnosis - Discharge Diagnosis (1) Renal failure Status: Resolved (2) Diarrhea Status: Resolved Discharge Plan - Discharge Data Disposition: Swing Bed, Hos Based, [facility] Condition at Discharge: Stable Discharge Diet: regular diet Activity: resume usual activities as tolerated, as per physical therapy Hygiene: no restrictions Weight Bearing at Discharge: full weight bearing - Discharge Medications New Calcium Carbonate Chew [Tums] 2 tablet PO Q4H PRN tablet PRN Reason: Dyspepsia Pantoprazole Tab [Protonix Tab] 40 mg PO BID #60 tablet Polyethylene Glycol Powder [Miralax] 17 gm PO DAILY PRN PRN Reason: Constipation Continue Calcium Carbonate/Vitamin D3 [Caltrate 600 Plus D3 Tablet] 1 each PO DAILY Apixaban [Eliquis] 2.5 mg PO BID Lactobacillus Combo No.6 [Probiotic Complex] 1 each PO DAILY Aspirin EC Tab 81 mg PO DAILY #30 tablet Levothyroxine Tab [Synthroid Tab] 100 mcg PO DAILY amLODIPine [Norvasc] 5 mg PO DAILY tablet Cranberry Fruit [Cranberry Chew Tab] 500 mg PO DAILY Ferrous Sulfate [Slow Release Iron] 500 mg PO QAM Hydrocodone/Acetaminophen [[place] 10-325 Tablet] 0 each PO Q8H PRN #30 PRN Reason: Pain Cyanocobalamin (Vitamin B-12) [Cyanocobalamin Injection] 1,000 mcg IJ Q30D Polyethylene Glycol Powder [Miralax] 17 gm PO DAILY PRN PRN Reason: Constipation Discontinued fentaNYL 12 MCG/HR PATCH [Duragesic 12 Patch] 1 patch TRANSDERM Q3DAY - Follow Up or Referral - Forms/Instructions Exam - Constitutional Vitals: Period Temp Pulse Resp BP Sys/Goff Pulse Ox Last 24 Hr 97.1 F-99 F 63-83 16-20 110-159/53-73 94-98 Exam: General: No Acute Distress HEENT: Normocephalic, atraumatic, Extra ocular movements intact Neck: Supple, No JVD Chest: Clear to auscultation B/L CV: S1 + S2 audible without murmur, gallop or rub Abd: soft, NT, Non-distended, BS + Ext: No edema Skin: No purpura, bruising or rash Rheumatologic: No Joint deformities Neurologic: Strength 5/5 all extremities, no gross sensory deficits DS: Provider Date of admission: 04/29/17 18:22 Primary care physician: Linda Caal Attending physician on admission: Zhang Mar MD Consults: 04/29/17 18:52 Consult to Physician [CONS] Routine Comment: heme positive stool Consulting Provider: Ryan Bahena Person Notified: ELMER Date Notified: 04/30/17 Time Notified: 08:00 04/29/17 20:47 Consult to Pastoral Services [CONS] Routine Comment: Pastoral Screen: Request Diet Aid Visit 04/30/17 08:50 Consult to Physician [CONS] Routine Comment: had an appt yesterday for surgery Consulting Provider: Bud Mosquera Person Notified: MELVI Date Notified: 04/30/17 Time Notified: 09:38 05/02/17 11:26 Consult to Anesthesiology [CONS] Routine Consulting Provider: Reason for Anesthesiology: Pre-op Clearance 05/03/17 07:29 Consult to Case Mgmt/Social Srvs [CONS] Routine Reason for Case Mgmt/Social Srvs: Rehab 05/04/17 07:42 Consult to Occupational Therapy [CONS] Routine Reason for Occupational Therapy: Evaluate and Treat Consult to Physical Therapy [CONS] Routine Reason for Physical Therapy: Evaluate and Treat Discharging clinician: Jose Chatterjee MD
== END 2017-05-06 15:35 | disposition swing bed (61) | DRG 982 ==
LOC: EDUNIT# → EDBD → N.ED 13:41 → SUATTDRO 18:22 → N.EDINP 18:22 → N.2E 19:35
PROVIDERS: ADMIT Internal Medicine; ATTEND Hospitalist

== ENCOUNTER 2018-02-22 21:03 | Inpatient (IN) ==
[2018-02-25 11:24] VITALS: BP 148/70
== END 2018-02-25 12:48 | DRG 690 ==
LOC: EDBD → EDUNIT# → N.ED 21:03 → SUATTDRO 23:47 → N.EDINP 23:47 → N.2E 02-23 00:59
PROVIDERS: ADMIT Internal Medicine; ATTEND Family Medicine